=== PATIENT | male | born 1950 | race Caucasian/White ===

== ENCOUNTER → 2021-06-12 13:16 | Outpatient (BNVA) | payer BC, SELFPAY | PROVIDERS: PCP Hospitalist; Referring Provider Hospitalist; Visit Provider Internal Medicine Cardiovascular Disease | DX: I25.10 Atherosclerotic heart disease of native coronary artery without angina pectoris (principal); I10 Essential (primary) hypertension; Z79.82 Long term (current) use of aspirin | CPT/HCPCS: 93005 ==

== ENCOUNTER 2021-07-27 07:19 | Outpatient (REF) | payer BC, SELFPAY ==
[2021-07-27 12:07] LABS: PSA,Total (Free>4and<10) 0.13 ng/mL (0.00-4.00)
== END 2021-07-27 07:20 | disposition home or self-care (01) ==
LOC: HO.HMGCLDS 07:19
PROVIDERS: PCP Hospitalist; Visit Provider Urology
DX: Z12.5 Encounter for screening for malignant neoplasm of prostate (principal); N40.1 Benign prostatic hyperplasia with lower urinary tract symptoms
CPT/HCPCS: 36415; 84153

== ENCOUNTER → 2021-08-02 08:44 | Outpatient (BNVA) | payer BC, SELFPAY | PROVIDERS: PCP Hospitalist; Visit Provider Urology | DX: N40.0 Benign prostatic hyperplasia without lower urinary tract symptoms (principal); C67.9 Malignant neoplasm of bladder, unspecified | CPT/HCPCS: 52000 ==

== ENCOUNTER 2022-01-24 07:35 | Outpatient (REF) | payer MEDICARE, SELFPAY ==
[2022-01-24 11:33] LABS: Appearance Urine CLEAR; Color Urine YELLOW; Glucose Urine UA NEG (NEG); Leukocyte Esterase Urine NEG (NEG); Nitrite Urine NEG (NEG); Specific Gravity - Urine 1.025 (1.005-1.025); Urine Blood NEG (NEG); Urine Ketones NEG (NEG); Urine Protein NEG (NEG-TRACE)
[2022-01-24 11:59] LABS: RBC Urine 0-2 /HPF (0); WBC Urine 0-2 /HPF (0-4)
[2022-01-24 12:00] LABS: Mucus Urine TRACE /LPF; Squamous Epithelial Cell Urine TRACE /LPF
== END 2022-01-24 07:36 | disposition home or self-care (01) ==
LOC: HO.HMGCLNP 07:35
PROVIDERS: PCP Urology; Visit Provider Urology
DX: N40.1 Benign prostatic hyperplasia with lower urinary tract symptoms (principal)
CPT/HCPCS: 81001; 87086

== ENCOUNTER → 2022-05-30 09:18 | Outpatient (REF) | payer MEDICARE, SELFPAY ==
--- NOTE | 2022-05-30 09:21 | CA_ITS ---
Transthoracic Echocardiogram Patient (Last, First, Middle): Phill Mccallum B Gender: Male Date of : 1950 Age: 72 Procedure Date: 05/30/2022 Procedure Type: Transthoracic Echocardiogram Location: OP Height: 177.8 cm Weight: 151.05 kg BSA: 2.59 m2 Heart Rate: 67 bpm BP: 134 / 72 mmHg Drill Runner Helper: SB Referring MD: Allen Avalos MD Symptoms: I25.10 - Atherosclerotic heart disease of [place] coronary... Study Quality: Technically Difficult/BSA/Contrast ECG Rhythm: Sinus Conclusions: - The left ventricular systolic function is normal. The visually estimated ejection fraction is between 60-65%. - There is moderate calcification of the aortic valve. There is mild aortic valve stenosis. - There is mild dilatation of the ascending aorta measuring 4.10 cm. Findings Procedure Information Contrast agent, definity, is being given per protocol without apparent complications. Left Ventricle Normal left ventricular cavity size. There is mildly increased left ventricular wall thickness. The left ventricular systolic function is normal. The visually estimated ejection fraction is between 60-65%. There is no evidence of regional wall motion abnormalities. E/E prime ratio is between 8 and 15 consistent with indeterminate filling pressures. Evidence suggests grade I (mild) diastolic dysfunction. Right Ventricle Mildly increased right ventricular cavity size. There is normal right ventricular systolic function. Atria Both atria are normal in size. Aortic Valve There is moderate calcification of the aortic valve. There is mild aortic valve stenosis. There is no aortic valve regurgitation. Mitral Valve The mitral valve appears normal. There is mild mitral annular calcification. There is no mitral valve regurgitation. There is no mitral valve stenosis. Pulmonic Valve The pulmonic valve is likely normal. Tricuspid Valve There is trace tricuspid valve regurgitation. Tricuspid regurgitation envelope is inadequate for calculation of right ventricular systolic pressure. Great Vessels There is mild dilatation of the ascending aorta measuring 4.10 cm. Venous The inferior vena cava is normal in size and collapses greater than 50% with inspiration. Pericardium/Pleural There is no evidence of pericardial effusion. Prior Study Comparison No significant change compared to prior study dated: 05/23/2020. Measurements 2D Linear Measurements IVSd: 0.62 0.6-0.9/0.6-1.0 cm LVIDd: 5.49 3.9-5.3/4.2-5.9 cm LVIDd Index: 2.12 2.4-3.2/2.2-3.1 cm/m2 LVIDs: 3.83 2.0-3.6 cm LVPWd: 0.77 0.7-1.1 cm LA Diam: 4.60 2.7-3.8/3.0-4.0 cm LAIDs Index: 1.78 1.5-2.3 cm/m2 LV Mass: 167.19 67-162/88-224 g LV Mass Index: 64.55 43-95/49-115 g/m2 LVOT Diam: 2.70 3.0+(-)1.3 cm 2D Systolic Function EF 4C: 69.80 >55% EF 2C: 64.50 >55% EF BiP: 67.20 >55% Mitral Valve MV Pk E: 1.04 MV PK A: 0.94 MV Decel Time: 234.00 E/A: 1.10 E'Lateral: 6.96 E'Medial: 6.74 E/E' Med: 15.40 E/E' Lat: 14.90 PHT: 69.00 MVA PHT: 3.19 Decel [place]: 4.44 Aortic Valve AoV Pk Heber: 2.18 AoV Mn Heber: 1.67 AoV VTI: 0.50 AoV Pk Grad: 19.00 Aov Mn Grad: 12.00 NOEMY Cont.VTI: 3.11 LVOT LVOT Pk Heber: 1.18 LVOT Mn Heber: 0.82 LVOT VTI: 0.27 LVOT Pk Grad: 6.00 LVOT Mn Grad: 3.00 LVOT Diam: 2.70 LVOT Area: 5.73 Diastolic Function MV Pk E: 1.04 MV Pk A: 0.94 E/A: 1.10 E'Medial: 6.74 E/E' Med: 15.40 E' Laterial: 6.96 E/E' Lat: 14.90 Right Ventricle TAPSE (mm): 21.40 TVS' Heber: 9.00 Tricuspid Valve RA Press: 3.00 Great Vessels Aorta Sinus of Valsalva: 3.50 2.0-3.5 cm Ao Asc: 4.10 2.1-3.4 cm Pulmonary Valve PV Pk Heber: 0.89 Peak PV Grad: 3.00 Updated in Other Vendor System with Status of Final Roberth May MD electronically signed on 06/01/2022 11:59:59 AM with status of Final
== END ==
LOC: HO.CARD 09:18
PROVIDERS: PCP Internal Medicine; Visit Provider Internal Medicine Cardiovascular Disease
DX: I25.10 Atherosclerotic heart disease of native coronary artery without angina pectoris (principal)
CPT/HCPCS: 93306; Q9957

== ENCOUNTER → 2022-06-03 09:32 | Outpatient (BNVA) | payer MEDICARE, SELFPAY | PROVIDERS: PCP Internal Medicine; Visit Provider Internal Medicine Cardiovascular Disease | DX: I25.10 Atherosclerotic heart disease of native coronary artery without angina pectoris (principal); I35.0 Nonrheumatic aortic (valve) stenosis; Z79.899 Other long term (current) drug therapy | CPT/HCPCS: 93005; 99212 ==

== ENCOUNTER 2022-06-07 08:08 | Outpatient (REF) | payer MEDICARE, SELFPAY ==
[2022-06-07 11:45] LABS: Cholesterol 125 mg/dL; HDL Cholesterol 34 mg/dL; LDL Cholesterol Calculated 65 mg/dl; Triglycerides 132 mg/dL
== END 2022-06-07 08:09 | disposition home or self-care (01) ==
LOC: HO.HMGCLDS 08:08
PROVIDERS: Visit Provider Internal Medicine Cardiovascular Disease
DX: I25.10 Atherosclerotic heart disease of native coronary artery without angina pectoris (principal)
CPT/HCPCS: 36415; 80061

== ENCOUNTER 2022-12-25 07:22 | Day surgery (SDC) | payer MEDICARE, SELFPAY ==
--- NOTE | 2022-12-24 11:31 | HO.ANESPROP2 ---
HPI - Anesthesia Eval Consult details Narrative: 72yo M for Upper Endoscopy and Colonoscopy Stable at yearly cardiac office visit 05/2022 [facility] Active Problems Active Problems: All Active Problems (Updated 12/24/22 @ 08:39 by Luana Lipscomb RN) Bladder cancer (Acute) Aortic stenosis (Acute) Enlarged prostate with lower urinary tract symptoms (LUTS) (Acute) HTN (hypertension) (Acute) CAD (coronary artery disease) (Acute) Past Medical History Medical History (Updated 12/24/22 @ 08:39 by Luana Lipscomb RN) Achalasia CAD (coronary artery disease) CVA (cerebral vascular accident) Enlarged prostate with lower urinary tract symptoms (LUTS) HTN (hypertension) Hyperlipidemia Sleep apnea Family History Family History Father Cancer Mother Cancer Surgical History Surgical History (Updated 12/24/22 @ 08:38 by Luana Lipscomb RN) History of bladder surgery History of left-sided carotid endarterectomy History of prostate surgery Hx of cardiac catheterization Social History Social History Patient Tobacco Use Status: Never used Tobacco Use of substances other than those prescribed or required for medical reasons: No Are you DNR?: No Advance Directives: No Advance Directives Information Provided: Yes Meds Allergies Allergy/AdvReac Type Severity Reaction Status Date / Time Penicillins [PENICILLINS] Allergy Intermediate HIVES Verified 08/02/21 08:57 penicillin V Allergy Unknown hives Verified 08/02/21 08:57 Home Medications Medication Instructions Recorded Confirmed Last Taken Type aspirin 81 mg tablet,delayed 81 mg PO DAILY 06/12/21 12/25/22 Unknown History release (Adult Aspirin Regimen) atenolol 100 mg tablet 100 mg PO DAILY 06/12/21 12/25/22 12/25/22 History hydrochlorothiazide 25 mg tablet 25 mg PO DAILY 06/12/21 12/25/22 Unknown History omeprazole 20 mg capsule,delayed 20 mg PO DAILY 06/12/21 12/25/22 Unknown History release lisinopril 5 mg tablet 5 mg PO DAILY 08/02/21 12/25/22 Unknown History Exam Exam Date and Time: December 24, 2022 1131 Narrative Narrative: EKG 05/2022 normal sinus rhythm with minimal voltage criteria for LVH otherwise normal EKG at 65 beats per min ECHO 05/2022 Conclusions: - The left ventricular systolic function is normal.? The visually estimated ejection fraction is between 60-65%. ? - There is moderate calcification of the aortic valve.? There is mild aortic valve stenosis.? - There is mild dilatation of the ascending aorta measuring 4.10 cm.? ?? Assessment and Plan Assessment Anesthesia Assessment: Chart Reviewed
[2022-12-25 07:36] VITALS: BMI 46.0
[2022-12-25 07:44] VITALS: BMI 46.0
[2022-12-25 07:52] VITALS: BP 186/74; PULSE 79; RESP 18; TEMP 36.2; O2SAT 96
[2022-12-25] MEDS: Lactated Ringers 1,000 ML 50 ML IVCONT (08:12)
--- NOTE | 2022-12-25 09:31 | P.CONAN_ITS ---
HPI - Anesthesia Eval Consult details Narrative: gabriel ayala ho polyp screening [facility] Active Problems Active Problems: All Active Problems (Updated 12/24/22 @ 08:39 by Luana Lipscomb RN) Bladder cancer (Acute) Aortic stenosis (Acute) Enlarged prostate with lower urinary tract symptoms (LUTS) (Acute) HTN (hypertension) (Acute) CAD (coronary artery disease) (Acute) Past Medical History Medical History (Updated 12/24/22 @ 08:39 by Launa Lipscomb RN) Achalasia CAD (coronary artery disease) CVA (cerebral vascular accident) Enlarged prostate with lower urinary tract symptoms (LUTS) HTN (hypertension) Hyperlipidemia Sleep apnea Family History Family History Father Cancer Mother Cancer Family history of problems with anesthesia: No Surgical History Surgical History (Updated 12/24/22 @ 08:38 by Luana Lipscomb RN) History of bladder surgery History of left-sided carotid endarterectomy History of prostate surgery Hx of cardiac catheterization History of Problems with Anesthesia: Yes (Woke up during colooscop) Social History Social History Patient Tobacco Use Status: Never used Tobacco Use of substances other than those prescribed or required for medical reasons: No Are you DNR?: No Advance Directives: No Advance Directives Information Provided: Yes Meds Allergies Allergy/AdvReac Type Severity Reaction Status Date / Time Penicillins [PENICILLINS] Allergy Intermediate HIVES Verified 08/02/21 08:57 penicillin V Allergy Unknown hives Verified 08/02/21 08:57 Active Medications: Current Medications Lactated Ringer's (Lr) 1,000 mls @ 50 mls/hr IVCONT .Q20H WILBERTO Last Admin: 12/25/22 08:12 Dose: 50 mls/hr Lactated Ringer's (Lr) 1,000 mls @ 50 mls/hr IVCONT .Q20H [facility] Sodium Biphosphate/Sodium Phosphate (Sodium Phosphate,Gregg-Dibasic 133 Ml Enema) 133 ml MD ONCE PRN PRN Reason: Poor Colonoscopy Prep Results Home Medications Medication Instructions Recorded Confirmed Last Taken Type aspirin 81 mg tablet,delayed 81 mg PO DAILY 06/12/21 12/25/22 Unknown History release (Adult Aspirin Regimen) atenolol 100 mg tablet 100 mg PO DAILY 06/12/21 12/25/22 12/25/22 History hydrochlorothiazide 25 mg tablet 25 mg PO DAILY 06/12/21 12/25/22 Unknown History omeprazole 20 mg capsule,delayed 20 mg PO DAILY 06/12/21 12/25/22 Unknown History release lisinopril 5 mg tablet 5 mg PO DAILY 08/02/21 12/25/22 Unknown History Exam Exam Date and Time: December 25, 2022930 Height,Weight and Vital Signs: Height 5 ft 11 in Weight 149.685 kg Last Vital Signs Temp 97.1 F 12/25/22 07:52 Pulse 79 12/25/22 07:52 Resp 18 12/25/22 07:52 BP 186/74 H 12/25/22 07:52 Pulse Ox 96 12/25/22 07:52 O2 Del Method 12/25/22 07:52 Airway Mallampati Class: III TM Dist: >3cm Neck ROM: Full (Large width) Loose/Missing/Broken Teeth: Yes (Missig front rand l) Heart: rr Lungs: cta Assessment and Plan Assessment Anesthesia Assessment: Anesthesia Plan Discussed and Chart Reviewed Final Anesthetic Review Family History of Problems with Anesthesia: No History of Problems with Anesthesia: Yes (Woke up during colooscop) NPO: Yes ASA Class: III Final Preanesthetic Review: No Changes in Pt Med Stat, Meds/Allgs Chart Reviewed, Consent Obtained/Reviewed and Anes Risks/Benef Reviewed Anesthetic Plan Anesthetic Plan: MAC: Disposition: Standard PACU
[2022-12-25 09:51] VITALS: BP 104/44; PULSE 70; RESP 22; TEMP 36.1; O2SAT 92
--- NOTE | 2022-12-25 09:51 | P.BOP_ITS ---
Brief Operative Note Date of Service: 12/25/22 Pre-op diagnosis: Jameson's, Screening Post-op diagnosis: other (Same, Gastric polyps, Diverticulosis) Procedure: EGD with biospies, Colonoscopy to the cecum and TI Surgeon: Brenden Diana Anesthesia: MAC Was an Fruit Buying Grader used for this Procedure?: No Estimated blood loss (mL): 2.0 Pathology: other (A. Esophagus 38-40cm B. Gastric polyp at 50cm C. Gastric polyps) Condition: stable Disposition: PACU
[2022-12-25 10:06] VITALS: BP 129/64; PULSE 73; RESP 20; TEMP 36.2; O2SAT 95
[2022-12-25 10:21] VITALS: BP 130/60; PULSE 65; RESP 20; TEMP 36.2; O2SAT 96
--- NOTE | 2022-12-25 11:45 | OP_ITS ---
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 Full consent has been obtained from him for this, including risks of bleeding and perforation. PREOPERATIVE DIAGNOSIS: POSTOPERATIVE DIAGNOSIS: PROCEDURE PERFORMED: Esophagogastroduodenoscopy with biopsies, and colonoscopy to the cecum and terminal ileum. ESTIMATED BLOOD LOSS: COMPLICATIONS: ANESTHESIA: Monitored anesthesia care. ASSISTANTS: SPECIMENS: PREOPERATIVE DIAGNOSES: Jameson's esophagus and colorectal cancer screening. POSTOPERATIVE DIAGNOSES: Jameson's esophagus and colorectal cancer screening, hiatal hernia, gastric polyps, diverticulosis, and internal hemorrhoids. DESCRIPTION OF PROCEDURE: The patient was placed in the left lateral decubitus position. The Olympus video gastroscope was passed into the posterior oropharynx and upper esophagus under direct vision. The scope was passed slowly to the distal esophagus. The gastroesophageal junction appeared at 40 cm. Extending from this, 38 cm were non-circumferential areas of Jameson appearing mucosa. There was no evidence of any ulceration, nor any lesions. The esophagus itself appeared to be somewhat dilated with diminished peristalsis, consistent with his known achalasia. The scope easily entered the stomach. There was a small hiatal hernia. The scope was advanced to the pylorus, and the duodenum was cannulated to the descending portion. The duodenum including the bulb appeared normal without mass or ulceration. The scope was withdrawn back in the stomach. The gastric antrum appeared normal with good peristalsis. Both in the forward viewing and retroflexed positions, I was able to visualize multiple gastric polyps, some of which appeared hyperplastic and some of which appeared to be inflammatory. There was one particularly large inflammatory polyp at 50 cm. There was no sign of any mass nor ulceration. The scope was withdrawn. The scope was withdrawn back in the esophagus. Multiple biopsies were obtained between 38 and 40 cm areas of Jameson appearing mucosa. The scope was readvanced back into the stomach, and biopsies were obtained from large inflammatory gastric polyp at 50 cm. I also obtained biopsies from some of the hyperplastic appearing gastric polyps as well. The scope was withdrawn back in the esophagus. Proximal to the 38 cm, the esophageal mucosa appeared normal. The scope was withdrawn from the patient. He was turned around for the colonoscopy. The digital rectal exam revealed no abnormalities. The Olympus video pediatric colonoscope was entered into the rectum and advanced to the cecum with assistance of abdominal wall pressure. Once in the cecum, I did identify normal-appearing cecal pouch with appendiceal orifice and normal-appearing ileocecal valve. The terminal ileum was cannulated and appeared normal. The scope was withdrawn back in the colon. The entire cecum and ileocecal valve appeared normal. The scope was slowly withdrawn assessing all mucosal surfaces carefully. Preparation was excellent. I did not visualize any sign of polyps, colitis nor angiodysplasia. There was a mild amount of sigmoid and descending colon diverticulosis. In the rectum, the scope was retroflexed, visualizing internal hemorrhoids, but no other pathology. The rectal mucosa appeared normal. The scope was straightened and withdrawn from the patient. He tolerated both procedures well and was returned to the recovery area in stable condition. IMPRESSION: 1. History of Jameson's esophagus. 2. Gastric polyps. 3. Hiatal hernia. 4. Diverticulosis. 5. Internal hemorrhoids. PLAN: The results of the biopsies will be checked. Given today's negative colonoscopy and a negative colonoscopy in 2016, I do not think he will need any further colonoscopies for screening purposes given his age 72. I would recommend repeat a upper endoscopy in three years for surveillance of the Jameson's esophagus assuming today's biopsies do not show dysplasia. He will continue his daily omeprazole. He was advised to resume his aspirin in 72 hours. He will otherwise see me on a p.r.n. basis. This has been discussed with his . MD DANIEL Kidd/CINDY / [id number]
== END 2022-12-25 11:02 | disposition home or self-care (01) ==
PROVIDERS: PCP Internal Medicine; Visit Provider Internal Medicine
PROC: (CPT 43239; principal; 2022-12-25 08:30)
DX: Z12.11 Encounter for screening for malignant neoplasm of colon (principal); Z86.010 Personal history of colon polyps; K57.30 Diverticulosis of large intestine without perforation or abscess without bleeding; K64.8 Other hemorrhoids; K22.70 Barrett's esophagus without dysplasia; K21.9 Gastro-esophageal reflux disease without esophagitis; K22.0 Achalasia of cardia; K31.7 Polyp of stomach and duodenum; K44.9 Diaphragmatic hernia without obstruction or gangrene; I10 Essential (primary) hypertension; E78.5 Hyperlipidemia, unspecified; G47.33 Obstructive sleep apnea (adult) (pediatric); N40.1 Benign prostatic hyperplasia with lower urinary tract symptoms; R35.0 Frequency of micturition; Z79.82 Long term (current) use of aspirin; Z79.899 Other long term (current) drug therapy; Z99.89 Dependence on other enabling machines and devices; Z85.51 Personal history of malignant neoplasm of bladder; Z86.73 Personal history of transient ischemic attack (TIA), and cerebral infarction without residual deficits
CPT/HCPCS: 43239; G0105; 88305; 88342; J2250

== ENCOUNTER → 2023-05-29 09:33 | Outpatient (REF) | payer MEDICARE, SELFPAY ==
--- NOTE | 2023-05-29 09:36 | CA_ITS ---
Transthoracic Echocardiogram Patient (Last, First, Middle): Phill Mccallum B Gender: Male Date of : 1950 Age: 73 Procedure Date: 05/29/2023 Procedure Type: Transthoracic Echocardiogram Location: OP Height: 180.34 cm Weight: 149.69 kg BSA: 2.61 m2 Heart Rate: 63 bpm BP: 110 / 60 mmHg Control Clerk Repairs: BRIJESH Referring MD: Allen Avalos MD Symptoms: I35.0 - Nonrheumatic aortic (valve) stenosis Study Quality: Fair/Contrast ECG Rhythm: Sinus Conclusions: - Normal left ventricular size and systolic function. There is mildly increased left ventricular wall thickness. The visually estimated ejection fraction is between 55-60%. - E/E prime ratio is >15, consistent with elevated filling pressures. - Mildly increased right ventricular cavity size. There is borderline right ventricular systolic function. - There is moderate calcification of the aortic valve. There is mild aortic valve stenosis. - There is moderate dilatation of the sinuses of Valsalva measuring 4.60 cm and mild dilatation of the ascending aorta measuring 4.10 cm. Findings Procedure Information Contrast agent, definity, is being given per protocol without apparent complications. Left Ventricle Normal left ventricular size and systolic function. There is mildly increased left ventricular wall thickness. The visually estimated ejection fraction is between 55-60%. There is no evidence of regional wall motion abnormalities. Abnormal diastolic function is noted. Spectral Doppler is indicative of an impaired relaxation filling pattern. E/E prime ratio is >15, consistent with elevated filling pressures. Right Ventricle Mildly increased right ventricular cavity size. There is borderline right ventricular systolic function. Atria The left atrium is normal in size. The right atrium is normal in size. Aortic Valve There is moderate calcification of the aortic valve. There is mild aortic valve stenosis. The peak aortic velocity is 2.41 m/s. The mean gradient is 14 mmHg. The aortic valve area is 2.30 cm2. There is no aortic valve regurgitation. Mitral Valve Normal mitral valve structure and function. There is no mitral valve regurgitation. There is no mitral valve stenosis. Pulmonic Valve Normal pulmonic valve structure and function. There is no pulmonic valve regurgitation. Tricuspid Valve Normal tricuspid valve structure and function. There is no tricuspid valve regurgitation. Tricuspid regurgitation envelope is inadequate for calculation of right ventricular systolic pressure. Indeterminate right atrial pressure. Great Vessels The pulmonary artery was not well visualized. There is moderate dilatation of the sinuses of Valsalva measuring 4.60 cm and mild dilatation of the ascending aorta measuring 4.10 cm. Venous The inferior vena cava was not well visualized. Pericardium/Pleural There is no evidence of pericardial effusion. Prior Study Comparison Changes noted compared to prior study dated: 05/30/2022. Elevated filling pressures. Mild dilation ascending and moderate root dilation. Mild . Measurements 2D Linear Measurements IVSd: 1.06 0.6-0.9/0.6-1.0 cm LVIDd: 4.93 3.9-5.3/4.2-5.9 cm LVIDd Index: 1.89 2.4-3.2/2.2-3.1 cm/m2 LVIDs: 3.20 2.0-3.6 cm LVPWd: 1.18 0.7-1.1 cm LA Diam: 3.60 2.7-3.8/3.0-4.0 cm LAIDs Index: 1.38 1.5-2.3 cm/m2 LV Mass: 258.73 67-162/88-224 g LV Mass Index: 99.13 43-95/49-115 g/m2 LVOT Diam: 2.50 3.0+(-)1.3 cm 2D Systolic Function EF 4C: 56.40 >55% EF 2C: 71.30 >55% EF BiP: 65.50 >55% Mitral Valve MV Pk E: 0.96 MV PK A: 1.05 MV Decel Time: 183.00 E/A: 0.90 E'Lateral: 6.57 E'Medial: 5.27 E/E' Med: 18.20 E/E' Lat: 14.60 PHT: 54.00 MVA PHT: 4.07 Decel [place]: 5.24 Aortic Valve AoV Pk Heber: 2.41 AoV Mn Heber: 1.78 AoV VTI: 0.59 AoV Pk Grad: 23.00 Aov Mn Grad: 14.00 NOEMY Cont.VTI: 2.30 LVOT LVOT Pk Heber: 1.11 LVOT Mn Heber: 0.86 LVOT VTI: 0.28 LVOT Pk Grad: 5.00 LVOT Mn Grad: 3.00 LVOT Diam: 2.50 LVOT Area: 4.91 Diastolic Function MV Pk E: 0.96 MV Pk A: 1.05 E/A: 0.90 E'Medial: 5.27 E/E' Med: 18.20 E' Laterial: 6.57 E/E' Lat: 14.60 Right Ventricle TAPSE (mm): 19.80 TVS' [place]: 8.92 Tricuspid Valve RA Press: 8.00 Great Vessels Aorta Sinus of Valsalva: 4.60 2.0-3.5 cm Ao Asc: 4.10 2.1-3.4 cm Pulmonary Valve PV Pk Heber: 0.97 Peak PV Grad: 4.00 Updated in Other Vendor System with Status of Final Jon Crockett MD electronically signed on 05/30/2023 11:53:11 AM with status of Final
== END ==
LOC: HO.CARD 09:33
PROVIDERS: PCP Internal Medicine; Visit Provider Internal Medicine Cardiovascular Disease
DX: I35.0 Nonrheumatic aortic (valve) stenosis (principal)
CPT/HCPCS: 93306; Q9957

== ENCOUNTER → 2023-05-29 09:36 | Outpatient (BNV) | payer MEDICARE, SELFPAY | PROVIDERS: PCP Internal Medicine; Visit Provider Internal Medicine Cardiovascular Disease | DX: I35.0 Nonrheumatic aortic (valve) stenosis (principal) | CPT/HCPCS: 93306 ==

== ENCOUNTER 2023-06-09 10:07 | Outpatient (AMB) | payer MEDICARE, SELFPAY ==
--- NOTE | 2023-06-09 10:10 | A.OFFVIS_ITS ---
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 He denies any new cardiac symptoms. Unfortunately has not been exercising regularly as per the who accompanies him. He denies any worsening symptoms of angina. His main complaint currently frequent urination thinks this is related to his hydrochlorothiazide use. Blood pressure measured in the morning as been in normal range. Denies any lightheadedness, syncope. Denies any orthopnea, PND, leg edema. Denies any prolonged palpitation irregular heartbeat. Takes all his medications. Recent echocardiogram shows mild aortic stenosis with preserved LV systolic function. [facility] Medical History Achalasia CAD (coronary artery disease) CVA (cerebral vascular accident) Enlarged prostate with lower urinary tract symptoms (LUTS) HTN (hypertension) Hyperlipidemia Sleep apnea Surgical History History of bladder surgery History of left-sided carotid endarterectomy History of prostate surgery Hx of cardiac catheterization Family History Father Cancer Mother Cancer Social History Patient Tobacco Use Status: Never used Tobacco Review of Systems Const Denies weakness ENT Denies dizziness Card Denies chest pain, Denies chest pain with activity, Denies syncope, Denies rapid heart rate, Denies pedal edema, Denies edema, Denies leg edema, Denies lightheadedness, Denies palpitations, Denies dyspnea, Denies dyspnea on exertion and Denies orthopnea Resp Denies cough, Denies dyspnea and Denies dyspnea on exertion GI Denies hematochezia and Denies change in stool character Musc Denies abnormal gait, Denies muscle cramps, Denies muscle weakness, Denies numbness, Denies radiating pain into limb and Denies tingling Neuro Denies abnormal gait, Denies dizziness, Denies syncope, Denies numbness, Denies tingling and Denies weakness Endo Denies palpitations Physical Exam Vital Signs: Last Vital Signs Pulse 65 06/09/23 10:11 BP 130/60 06/09/23 10:11 BMI result Body Mass Index 46.7 Const General: cooperative, comfortable, no acute distress, alert and awake Nutritional Appearance: obese morbidly obese Orientation/consciousness: patient oriented x3 Limitations: no limitations Neck Neck: Yes trachea midline, Yes supple and Yes no JVD Carotids: bruit bilateral Resp Effort & Inspection: normal respiratory effort Auscultation: clear to auscultation bilaterally Cardio Jugular venous distension: no JVD Rate: regular rate Rhythm: regular rhythm Heart sounds: S1 normal heart sound present, S2 normal heart sound present, no click, no gallops, Murmur heart sound present systolic early, decrescendo and crescendo and no rubs Peripheral pulses: Peripheral pulses 2+ throughout GI Inspection: Yes Abdominal panniculus present and Yes obesity Auscultation: normal bowel sounds Skin General skin exam: no rashes or lesions noted Neuro General: patient oriented x3 and no focal motor deficits Extrem General: Yes no clubbing, cyanosis or edema Assessment & Plan Assessment & Plan (1) CAD (coronary artery disease): Code(s): I25.10 - Atherosclerotic heart disease of [place] coronary artery without angina pectoris Plan: CAD with severe branch vessel disease no symptoms of angina on current medical therapy with atenolol and isosorbide. However he does not exercise much. Discussed with the move importance of exercise to improve cardiovascular outcome as well as other outcomes. Advised lipid panel near future. Continue high- intensity statin therapy and low-dose aspirin therapy. To participate in aggressive weight loss program. Continue aggressive blood pressure control. He is currently having side effects to hydrochlorothiazide therapy and agree with discontinuing it to improve his quality of life and switch to increase lisinopril does at 10 mg. (2) Aortic stenosis: Code(s): I35.0 - Nonrheumatic aortic (valve) stenosis Plan: Aortic stenosis which remains mild. No interventions required. Cardinal symptoms associated with severe aortic stenosis were discussed. Continue aggressive vascular risk factor modification. Follow-up echocardiogram next year. Will follow up in the clinic in 1 year's time, sooner p.r.n.. Thank you for allowing me to partake in his care Orders: Orders Lipid Panel Today I25.10 - Atherosclerotic heart disease of [place] coronary art tracy without angina pectoris CA echo transthoracic complete 50 Weeks I35.0 - Nonrheumatic aortic (valve) stenosis Medications: New lisinopril 10 mg PO DAILY 90 tabs 3RF I35.0 - Nonrheumatic aortic (valve) stenosis Coding Level of Care Code Est Pt Level 4 (68691) Diagnoses CAD (coronary artery disease) I25.10 Aortic stenosis I35.0
[2023-06-09 10:11] VITALS: BP 130/60; PULSE 65; BMI 46.7
== END 2023-06-09 10:50 | disposition home or self-care (01) ==
PROVIDERS: PCP Internal Medicine; Referring Provider Internal Medicine; Visit Provider Internal Medicine Cardiovascular Disease
DX: I25.10 Atherosclerotic heart disease of native coronary artery without angina pectoris (principal); I35.0 Nonrheumatic aortic (valve) stenosis
CPT/HCPCS: 99214

== ENCOUNTER → 2023-06-09 10:07 | Outpatient (BNVA) | payer MEDICARE, SELFPAY | PROVIDERS: PCP Internal Medicine; Referring Provider Internal Medicine; Visit Provider Internal Medicine Cardiovascular Disease | DX: I35.0 Nonrheumatic aortic (valve) stenosis (principal); I25.10 Atherosclerotic heart disease of native coronary artery without angina pectoris; I10 Essential (primary) hypertension | CPT/HCPCS: 99212 ==

== ENCOUNTER 2023-06-10 08:35 | Outpatient (REF) | payer MEDICARE, SELFPAY ==
[2023-06-10 12:04] LABS: Cholesterol 115 mg/dL (<200); HDL Cholesterol 33 mg/dL (>40); LDL Cholesterol Calculated 59 mg/dL (<100); Triglycerides 116 mg/dL (<150)
== END 2023-06-10 08:36 | disposition home or self-care (01) ==
LOC: HO.HMGCLDS 08:35
PROVIDERS: PCP Internal Medicine; Visit Provider Internal Medicine Cardiovascular Disease
DX: I25.10 Atherosclerotic heart disease of native coronary artery without angina pectoris (principal)
CPT/HCPCS: 36415; 80061

== ENCOUNTER 2023-09-23 10:51 | Outpatient (AMB) | payer MEDICARE, SELFPAY ==
[2023-09-23 11:12] VITALS: BP 120/68; PULSE 62; BMI 48.0
--- NOTE | 2023-09-23 11:12 | A.OFFVIS_ITS ---
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 Allergies Penicillins [PENICILLINS] Allergy (Intermediate, Verified 06/09/23 10:11) HIVES penicillin V Allergy (Unknown, Verified 06/09/23 10:11) hives Medication List - Last Reconciled 09/23/23 by Allen Avalos MD aspirin (Adult Aspirin Regimen) 162 mg PO DAILY atenolol 100 mg PO DAILY atorvastatin 80 mg PO DAILY isosorbide mononitrate ER 60 mg PO DAILY lisinopril 10 mg PO DAILY omeprazole 20 mg PO DAILY HPI HPI Comments History of Present Illness Details Tiburcio comes for follow-up visit after a visit with flight operations manager due to recurrent transient visual disturbances which dating might be related to amauosis Fugax, although no clear the time retinal abnormality was noted. Patient subsequently had echocardiogram which showed mild aortic stenosis normal LV systolic function moderate left atrial enlargement. He denies any symptoms of palpitations. Denies any other neurologic symptoms. Denies any exertional chest pain or shortness of breath. No change in his therapy. His LDL cholesterol is well optimized at 56 PFSH Medical History Achalasia Sleep apnea Hyperlipidemia CVA (cerebral vascular accident) Enlarged prostate with lower urinary tract symptoms (LUTS) HTN (hypertension) CAD (coronary artery disease) Surgical History History of prostate surgery History of left-sided carotid endarterectomy Hx of cardiac catheterization History of bladder surgery Family History Father Cancer Mother Cancer Social History Patient Tobacco Use Status: Never used Tobacco Review of Systems Const Denies chills, Denies fatigue, Denies fever(s), Denies frequent falls, Denies weakness, Denies weight gain and Denies weight loss ENT Denies dizziness Card Denies chest pain, Denies leg edema, Denies lightheadedness, Denies palpitations, Denies dyspnea, Denies dyspnea on exertion, Denies orthopnea and Denies other (loss of consciousness) Resp Denies cough, Denies dyspnea and Denies dyspnea on exertion GI Denies hematochezia and Denies change in stool character Musc Denies abnormal gait, Denies muscle weakness, Denies numbness, Denies radiating pain into limb and Denies tingling Neuro Denies abnormal gait, Denies dizziness, Denies frequent falls, Denies numbness, Denies tingling and Denies weakness Endo Denies fatigue and Denies palpitations Physical Exam Vital Signs: Last Vital Signs Pulse 62 09/23/23 11:12 BP 120/68 09/23/23 11:12 BMI result Body Mass Index 48.0 Const General: cooperative, comfortable, no acute distress, alert and awake Nutritional Appearance: obese morbidly obese Orientation/consciousness: patient oriented x3 Limitations: no limitations Neck Neck: Yes trachea midline, Yes supple and Yes no JVD Carotids: bruit bilateral Resp Effort & Inspection: normal respiratory effort Auscultation: clear to auscultation bilaterally Cardio Jugular venous distension: no JVD Rate: regular rate Rhythm: regular rhythm Heart sounds: S1 normal heart sound present, S2 normal heart sound present, no click, no gallops, Murmur heart sound present systolic early, decrescendo and crescendo and no rubs Peripheral pulses: Peripheral pulses 2+ throughout GI Inspection: Yes Abdominal panniculus present and Yes obesity Auscultation: normal bowel sounds Skin General skin exam: no rashes or lesions noted Neuro General: patient oriented x3 and no focal motor deficits Extrem General: Yes no clubbing, cyanosis or edema Assessment & Plan Assessment & Plan (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 Patient is at risk for atrial fibrillation given his left atrial enlargement multiple risk factors as well as vascular disease. Will obtain a cardiac event monitor to further assess for the same. If is no evidence of atrial fibrillation I would recommend also for him to undergo carotid duplex [facility]. Will reach out to vascular surgery. If he does have significant plaquing, may benefit from dual antiplatelet therapy. If he has atrial fibrillation would benefit from oral anticoagulation therapy. If no obvious carotid disease and/or atrial fibrillation found can consider LESLI. (2) CAD (coronary artery disease): Code(s): I25.10 - Atherosclerotic heart disease of [place] coronary artery without angina pectoris Plan: CAD with branch vessel disease. No current symptoms of angina on dual antianginal therapy continue same. Currently LDL is well optimized. Advised to continue high-intensity statin therapy. Blood pressure is currently well optimized. Currently on aspirin therapy for vascular protection continue the same. May need to add 2nd antiplatelet agent if she he has any significant plaquing in carotid disease. (3) Aortic stenosis: Code(s): I35.0 - Nonrheumatic aortic (valve) stenosis Plan: Aortic stenosis which appears to be mild and stable. Continue aggressive vascular risk factor modifications above. Follow up in the clinic in 6 months time, sooner p.r.n.. Thank you for allowing me to partake in his care Coding Level of Care Code Est Pt Level 4 (66098) Diagnoses Amaurosis fugax G45.3 CAD (coronary artery disease) I25.10 Aortic stenosis I35.0
== END 2023-09-23 11:42 | disposition home or self-care (01) ==
PROVIDERS: PCP Internal Medicine; Visit Provider Internal Medicine Cardiovascular Disease
DX: G45.3 Amaurosis fugax (principal); I25.10 Atherosclerotic heart disease of native coronary artery without angina pectoris; I35.0 Nonrheumatic aortic (valve) stenosis
CPT/HCPCS: 99214

== ENCOUNTER → 2023-09-23 10:51 | Outpatient (BNVA) | payer MEDICARE, SELFPAY | PROVIDERS: PCP Internal Medicine; Visit Provider Internal Medicine Cardiovascular Disease | DX: G45.3 Amaurosis fugax (principal); I25.10 Atherosclerotic heart disease of native coronary artery without angina pectoris; I35.0 Nonrheumatic aortic (valve) stenosis | CPT/HCPCS: 99212 ==

== ENCOUNTER 2023-10-08 08:23 | Outpatient (REF) | payer MEDICARE, SELFPAY ==
--- NOTE | ~2023-10-08 | US_ITS ---
EXAMINATION: US EXTRACRANIAL CAROTID DUPLEX, BILATERAL CLINICAL INFORMATION: Visual disturbances. History of left endarterectomy in December 2013. Hypertension. Hyperlipidemia. COMPARISON: Carotid ultrasound 01/03/2014. TECHNIQUE: Real-time ultrasound and Doppler techniques (integrating B-mode 2-D vascular images, Doppler spectral analysis and color-flow Doppler imaging) were utilized to interrogate the extracranial carotid arteries, the vertebral arteries and proximal subclavian arteries bilaterally. The degree of stenosis is determined by criteria similar to NASCET. FINDINGS: Right Side: 1. There is moderate atherosclerotic plaque seen in the bifurcation/proximal ICA region. 2. The common carotid artery PSV proximally is 97 cm/s and distally 96 cm/s. 3. The proximal internal carotid artery velocities are 137 cm/s systolic and 22 cm/s diastolic. 4. The proximal external carotid artery PSV is 150 cm/s. 5. The vertebral artery shows antegrade flow. 6. The subclavian artery waveforms are normal. Left Side: 1. There is mild atherosclerotic plaque seen in the bifurcation/proximal ICA region. 2. The common carotid artery PSV proximally is 124 cm/s and distally 108 cm/s. 3. The proximal internal carotid artery velocities are 63 cm/s systolic and 14 cm/s diastolic. 4. The proximal external carotid artery PSV is 157 cm/s. 5. The vertebral artery shows antegrade flow. 6. The subclavian artery waveforms are normal. US/US carotid duplex BI IMPRESSION: 1. RIGHT: Moderate, hemodynamically significant stenosis of the proximal right internal carotid artery corresponding to a 50-79% stenosis by velocity criteria. 2. LEFT: Minimal, non-hemodynamically significant stenosis of the proximal left internal carotid artery corresponding to a 0-49% stenosis by velocity criteria. 3. Disease category is stable on the right and improved on the left compared to the study from 01/03/2014. History of endarterectomy in December 2013.
== END 2023-10-08 08:24 | disposition home or self-care (01) ==
LOC: HO.HMGCX 08:23
PROVIDERS: PCP Internal Medicine; Visit Provider Internal Medicine Cardiovascular Disease
DX: H53.9 Unspecified visual disturbance (principal); Z86.73 Personal history of transient ischemic attack (TIA), and cerebral infarction without residual deficits
CPT/HCPCS: 93880

== ENCOUNTER → 2023-11-11 10:48 | Outpatient (REF) | payer MEDICARE, SELFPAY ==
--- NOTE | 2023-11-11 10:50 | HM_ITS ---
Cardiac event monitor Indication: Amaurosis fugax Technique: Patient was hooked up to cardiac event monitor on 11/11/2023 for total period of 30 days with compliance rate of about 85%. Findings: Baseline was normal sinus rhythm with maximum heart rate of 93 beats per minute minimal heart rate of 49 beats per minute. There were no significant pauses noted. There were rare PACs and PVCs noted. No sustained arrhythmias or atrial fibrillation noted. Patient activated the button 14 times but only recorded twice in the diary without any associated symptoms reported correlating with sinus rhythm. Conclusion: 1. Baseline was normal sinus rhythm with no pauses 2. No evidence of atrial fibrillation 3. Rare ectopy noted 4. Patient reported events correlated with sinus rhythm MTDD
== END ==
LOC: HO.CARD 10:48
PROVIDERS: PCP Internal Medicine; Visit Provider Internal Medicine Cardiovascular Disease
DX: G45.3 Amaurosis fugax (principal)
CPT/HCPCS: 93270

== ENCOUNTER → 2023-11-11 10:50 | Outpatient (BNV) | payer MEDICARE, SELFPAY | PROVIDERS: PCP Internal Medicine; Visit Provider Internal Medicine Cardiovascular Disease | DX: I49.3 Ventricular premature depolarization (principal); G45.3 Amaurosis fugax | CPT/HCPCS: 93272 ==

== ENCOUNTER → 2023-11-13 10:49 | Outpatient (BNVA) | payer MEDICARE, SELFPAY | PROVIDERS: PCP Internal Medicine; Visit Provider Surgery Vascular Surgery ==

== ENCOUNTER 2023-11-13 11:02 | Outpatient (AMB) | payer MEDICARE, SELFPAY ==
--- NOTE | 2023-11-13 10:50 | MHC.OFFVIS ---
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 Avalos for carotid US. Pt states he is always tired and states his left eyes has been going blank . He states he just sees white in his left eye occasionally which will last for about 10 minutes. Pt states the last epsiode he had was about a week ago. 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 Actually presented to his [employer] for changes in vision in the left eye. Actually reported that it is occasional blanking out of the eye. It does recover. It has actually been going off and on for about a year. He had seen Dr. Laird from Ophthalmology was concerned about TIAs and was sent over to Cardiology. Cardiology has obtained noninvasive ultrasound testing. He now presents to us for vascular evaluation. Of note he had undergone a left carotid endarterectomy in December [address] Moreno at [facility]. At that time he was originally seen and worked up at [place] for a stroke. Subsequently transferred to [facility] where it was discovered that he had nearly 90% stenosis of the left side. Had undergone endarterectomy after that with no incidents. He has been lost to follow up with them. He now presents to us for vascular evaluation. Of note he is being maintained on 2 baby aspirin and high-dose statin. [facility] Medical History Achalasia Sleep apnea Hyperlipidemia CVA (cerebral vascular accident) Enlarged prostate with lower urinary tract symptoms (LUTS) HTN (hypertension) CAD (coronary artery disease) Surgical History History of prostate surgery History of left-sided carotid endarterectomy Hx of cardiac catheterization History of bladder surgery Family History Father Cancer Mother Cancer Social History (Updated 11/13/23 @ 10:55 by Radha Peck MA) Alcohol intake: never Patient Tobacco Use Status: Never used Tobacco Review of Systems Const All systems reviewed & are unremarkable except as noted in HPI and below Reports no additional complaints ENT Reports Normal hearing present Card Denies chest pain, Denies chest pain at rest, Denies chest pain with activity and Denies pedal edema Resp Denies cough GI Denies abdominal pain Musc Denies abnormal gait, Denies muscle cramps and Denies radiating pain into limb Skin/Breast Denies skin ulcer and Denies wounds Neuro Reports Normal hearing present and Denies abnormal gait Psych Reports no additional complaints Physical Exam Vital Signs: Last Vital Signs Pulse 72 11/13/23 10:51 BP 130/64 11/13/23 10:57 Pulse Ox 99 11/13/23 10:51 Oxygen Delivery Method Room Air 11/13/23 10:51 BMI result Body Mass Index 47.8 Const General: cooperative, healthy appearing and comfortable Orientation/consciousness: oriented to person, oriented to place and oriented to time HEENT Head: Yes normal to inspection Neck Neck: Yes normal visual inspection Carotids: no bruits Chest Chest palpation & inspection: normal inspection of the chest Resp Effort & Inspection: normal respiratory effort and able to speak in complete sentences Auscultation: clear to auscultation bilaterally, no crackles, no rales, no rhonchi and no wheezes Cardio Rate: regular rate Rhythm: regular rhythm Heart sounds: S1 normal heart sound present and S2 normal heart sound present Bruits: no carotid bruits Peripheral pulses: Peripheral pulses 2+ throughout GI Inspection: Yes normal to inspection Skin Wounds: no wounds Hair: normal Neuro General: oriented to person, oriented to place and oriented to time Cranial nerves: Yes CN's II-XII intact bilaterally and Yes Normal hearing present Cognition (Neuro): normal cognition Motor exam (neuro): 5/5 motor strength present throughout Extrem Other: venous exam: No significant superficial varicosities or spider telangiectasias, minimal edema General: No clubbing, No cyanosis and No edema Psych Appearance: grossly normal Mental Status: mental status grossly normal Speech and movement: Normal speech and movement present Results Reviewed Results Reviewed: Carotid ultrasound dated 10/08/2023 demonstrates right side 50-79% stenosis and left-sided 0-49% stenosis. Written report and images were reviewed. Assessment & Plan Assessment & Plan (1) Bilateral carotid artery stenosis: Code(s): I65.23 - Occlusion and stenosis of bilateral carotid arteries Plan: In short patient has questionable symptomatic carotid disease. We have reviewed signs and symptoms of a stroke along with amaurosis fugax. We also discussed risk factor modification inclusive a healthy diet low in cholesterol. I have taken the liberty of ordering CT angiogram of the carotids to better elucidate the true degree of stenosis and to follow-up on the left side. We will try to expedite this as there is question of amaurosis fugax.. Should there be any changes or signs or symptoms of a stroke we will be happy to see them back sooner. Thank you for allowing us to participate in this patient's care. If there are any questions or concerns please do not hesitate to contact us. Orders: Orders Blood Urea Nitrogen Today I65.23 - Occlusion and stenosis of bilateral carotid arteries Creatinine Today I65.23 - Occlusion and stenosis of bilateral carotid arteries CT angio neck 1 Week I65.23 - Occlusion and stenosis of bilateral carotid arteries Coding Level of Care Code New Pt Level 4 (55015) Diagnoses Bilateral carotid artery stenosis I65.23
[2023-11-13 10:51] VITALS: BP 138/70; PULSE 72; O2SAT 99; BMI 47.8
[2023-11-13 10:57] VITALS: BP 130/64
== END 2023-11-13 11:54 | disposition home or self-care (01) ==
PROVIDERS: PCP Internal Medicine; Visit Provider Surgery Vascular Surgery
DX: I65.23 Occlusion and stenosis of bilateral carotid arteries (principal)
CPT/HCPCS: 99204

== ENCOUNTER 2023-11-13 11:44 | Outpatient (REF) | payer MEDICARE, SELFPAY ==
[2023-11-13 14:45] LABS: Blood Urea Nitrogen 10 mg/dL (9-16); Estimated Glomerular Filt Rate > 60
== END 2023-11-13 11:45 | disposition home or self-care (01) ==
LOC: HO.HMGCLDS 11:44
PROVIDERS: PCP Internal Medicine; Visit Provider Surgery Vascular Surgery
DX: I65.23 Occlusion and stenosis of bilateral carotid arteries (principal); H53.9 Unspecified visual disturbance
CPT/HCPCS: 36415; 82565; 84520; 99202

== ENCOUNTER 2023-11-18 13:41 | Outpatient (REF) | payer MEDICARE, SELFPAY ==
--- NOTE | ~2023-11-18 | CT_ITS ---
EXAMINATION: CT ANGIOGRAM NECK WITH CONTRAST CLINICAL INFORMATION: Occlusion/stenosis bilateral carotid arteries. COMPARISON: Carotid ultrasound dated 10/08/2023. TECHNIQUE: CONTIGUOUS AXIAL CT IMAGES WERE OBTAINED FROM THE AORTIC ARCH TO THE SKULL BASE FOLLOWING THE ADMINISTRATION OF 50 ML OF OMNIPAQUE 350 INTRAVENOUS CONTRAST. THE DATA WAS TRANSFERRED TO AN INDEPENDENT WORKSTATION, WHERE 3-D RECONSTRUCTIONS WERE PERFORMED. The degree of stenosis determined by NASCET Criteria. THIS CT EXAMINATION WAS PERFORMED USING DOSE OPTIMIZATION TECHNIQUES APPROPRIATE, VARIOUSLY INCLUDING THE FOLLOWING: *AUTOMATED EXPOSURE CONTROL *ADJUSTMENT OF MA AND/OR KV ACCORDING TO PATIENT SIZE (THIS INCLUDES TECHNIQUES OR STANDARDIZED PROTOCOLS FOR TARGETED EXAMS WHERE DOSE IS MATCHED TO INDICATION/REASON FOR EXAM; I.E. EXTREMITIES OR HEAD) *USE OF ITERATIVE RECONSTRUCTION TECHNIQUE DLP: [id number] MGY-CM INTERPRETATION OF FILMS: NECK CTA: The visualized aorta is normal in caliber. The origins of the common carotid arteries are widely patent. There is calcific atherosclerotic disease at the origin of the right vertebral artery, which is dominant. The subclavian arteries are widely patent. The right common carotid artery is normal in caliber. There is partially calcified atherosclerotic plaque extending from the carotid bifurcation into the proximal aspect of the right internal carotid artery resulting in a moderate degree of luminal irregularity and mild proximal right internal carotid artery stenosis. The mid and distal aspects of the cervical right internal carotid artery demonstrates smooth luminal margins and are normal in caliber. The right external carotid artery is normal in caliber. The left common carotid artery is normal in caliber. There is partially calcified atherosclerotic plaque along the medial wall of this vessel. The cervical bifurcation is widely patent. There are surgical changes status post endarterectomy. There is mild luminal irregularity at the proximal aspect of the carotid bulb without significant narrowing. The mid and distal aspects of the cervical left internal carotid artery demonstrates smooth luminal margins and are normal in caliber. The dominant right vertebral artery is patent and has a normal course through the cervical region the V1 segment of the left vertebral artery demonstrates areas of multifocal irregularity. Differential considerations include the sequelae of chronic dissection versus atherosclerosis. Visualized intracranial vasculature is normal in appearance. OTHER: Lung apices are clear. SUMMARY: - There is partially calcified atherosclerotic plaque extending from the right carotid bifurcation into the proximal aspect of the right internal carotid artery resulting in a moderate degree of luminal irregularity and mild proximal right internal carotid artery stenosis. The mid and distal aspects of the cervical right internal carotid artery demonstrate smooth luminal margins and are normal in caliber. - The left common carotid artery is normal in caliber. There is partially calcified atherosclerotic plaque along the medial wall of this vessel. The left cervical bifurcation is widely patent. There are surgical changes status post endarterectomy. There is mild luminal irregularity at the proximal aspect of the carotid bulb without significant narrowing. The mid and distal aspects of the cervical left internal carotid artery demonstrate smooth luminal margins and are normal in caliber.
[2023-11-18] MEDS: iohexoL 350 MG/ML 100 ML INFUS..BTL IV (14:52)
== END 2023-11-18 13:42 | disposition home or self-care (01) ==
LOC: HO.CT 13:41
PROVIDERS: Visit Provider Surgery Vascular Surgery
DX: I65.23 Occlusion and stenosis of bilateral carotid arteries (principal)
CPT/HCPCS: 70498; Q9967

== ENCOUNTER 2023-11-20 09:42 | Outpatient (AMB) | payer MEDICARE, SELFPAY ==
[2023-11-20 10:04] VITALS: BMI 47.8
--- NOTE | 2023-11-20 10:04 | A.OFFVIS_ITS ---
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 There was question of a symptomatic stroke along with amaurosis fugax. He has had no other interval issues. He now presents for follow-up with CT angiogram. He has been seeing Dr. Laird from Ophthalmology. There was also concerns of TIAs. Of note he had undergone left carotid endarterectomy in December of [address] Moreno at [facility]. He is being maintained on 2 baby aspirin and high-dose statin. Now presents for follow-up evaluation. [facility] Medical History Achalasia Sleep apnea Hyperlipidemia CVA (cerebral vascular accident) Enlarged prostate with lower urinary tract symptoms (LUTS) HTN (hypertension) CAD (coronary artery disease) Surgical History History of prostate surgery History of left-sided carotid endarterectomy Hx of cardiac catheterization History of bladder surgery Family History Father Cancer Mother Cancer Social History Alcohol intake: never Patient Tobacco Use Status: Never used Tobacco Review of Systems Const All systems reviewed & are unremarkable except as noted in HPI and below Reports no additional complaints ENT Reports Normal hearing present Card Denies chest pain, Denies chest pain at rest, Denies chest pain with activity and Denies pedal edema Resp Denies cough GI Denies abdominal pain Musc Denies abnormal gait, Denies muscle cramps and Denies radiating pain into limb Skin/Breast Denies skin ulcer and Denies wounds Neuro Reports Normal hearing present and Denies abnormal gait Psych Reports no additional complaints Physical Exam Vital Signs: BMI result Body Mass Index 47.8 Const General: cooperative, healthy appearing and comfortable Orientation/consciousness: oriented to person, oriented to place and oriented to time HEENT Head: Yes normal to inspection Neck Neck: Yes normal visual inspection Carotids: no bruits Chest Chest palpation & inspection: normal inspection of the chest Resp Effort & Inspection: normal respiratory effort and able to speak in complete sentences Auscultation: clear to auscultation bilaterally, no crackles, no rales, no rhonchi and no wheezes Cardio Rate: regular rate Rhythm: regular rhythm Heart sounds: S1 normal heart sound present and S2 normal heart sound present Bruits: no carotid bruits Peripheral pulses: Peripheral pulses 2+ throughout GI Inspection: Yes normal to inspection Skin Wounds: no wounds Hair: normal Neuro General: oriented to person, oriented to place and oriented to time Cranial nerves: Yes CN's II-XII intact bilaterally and Yes Normal hearing present Cognition (Neuro): normal cognition Motor exam (neuro): 5/5 motor strength present throughout Extrem Other: venous exam: No significant superficial varicosities or spider telangiectasias, minimal edema General: No clubbing, No cyanosis and No edema Psych Appearance: grossly normal Mental Status: mental status grossly normal Speech and movement: Normal speech and movement present Results Reviewed Results Reviewed: CT angiogram performed on 11/18/2023 demonstrates right side 27% stenosis with high degree of calcification. Left side within normal limits. Written report and images were reviewed. In addition this case was discussed with the radiology team in an addendum was added to the original dictation. Assessment & Plan Assessment & Plan (1) Bilateral carotid artery stenosis: Code(s): I65.23 - Occlusion and stenosis of bilateral carotid arteries Plan: In short patient has asymptomatic carotid disease. I do not believe the carotids were the source of his issues. We have reviewed signs and symptoms of a stroke. We also discussed risk factor modification inclusive a healthy diet low in cholesterol. The patient will follow up with us with surveillance ultrasound of the carotids 6 months. Should there be any changes or signs or symptoms of a stroke we will be happy to see them back sooner. Thank you for allowing us to participate in this patient's care. If he decides to return to Dr. Moreno for further care will be happy to forward our records. If there are any questions or concerns please do not hesitate to contact us. Plan The patient had an opportunity to ask questions regarding the treatment plan. All questions were answered. Imaging studies, laboratory studies and physical exam results were discussed and reviewed in detail. No major barriers to understanding were identified. The patient expressed understanding and agreement with the above treatment plan. The patient is aware they should contact our office by phone for worsening of the current condition or the appearance of new symptoms. Thank you for allowing me to participate in the vascular care of this patient. If you have any questions or concerns regarding the treatment for the above condition please do not hesitate to contact me. The office telephone contact is [phone]. This note is constructed using voice recognition software. While every effort has been made to ensure accuracy, family member caretaker errors may have been included. Thank you for allowing me to participate in the care of your patient. Yours sincerely, Sohail Bucio MD, FACS, R.P.V.I. Orders: Orders US carotid duplex BI 6 Months I65.23 - Occlusion and stenosis of bilateral carotid arteries Coding Level of Care Code Est Pt Level 4 (04287) Diagnoses Bilateral carotid artery stenosis I65.23
== END 2023-11-20 10:38 | disposition home or self-care (01) ==
PROVIDERS: PCP Internal Medicine; Visit Provider Surgery Vascular Surgery
DX: I65.23 Occlusion and stenosis of bilateral carotid arteries (principal)
CPT/HCPCS: 99213

== ENCOUNTER → 2023-11-20 09:42 | Outpatient (BNVA) | payer MEDICARE, SELFPAY | PROVIDERS: PCP Internal Medicine; Visit Provider Surgery Vascular Surgery | DX: I65.23 Occlusion and stenosis of bilateral carotid arteries (principal) | CPT/HCPCS: 99212 ==

== ENCOUNTER 2024-01-14 06:53 | Day surgery (SDC) | payer MEDICARE, SELFPAY ==
[2024-01-12 11:54] VITALS: BMI 47.8
[2024-01-14 07:10] VITALS: BMI 47.7
[2024-01-14 07:29] VITALS: BP 148/63; PULSE 64; RESP 16; TEMP 36.2; O2SAT 98
[2024-01-14] MEDS: Lactated Ringers 1,000 ML 80 ML IVCONT (07:34)
--- NOTE | 2024-01-14 07:48 | P.CONAN_ITS ---
[facility] Active Problems Active Problems: All Active Problems (Updated 11/13/23 @ 11:41 by Sohail Bucio MD) Bilateral carotid artery stenosis (Acute) Aortic stenosis (Acute) Bladder cancer (Acute) Enlarged prostate with lower urinary tract symptoms (LUTS) (Acute) HTN (hypertension) (Acute) CAD (coronary artery disease) (Acute) Past Medical History Medical History Achalasia Sleep apnea Hyperlipidemia CVA (cerebral vascular accident) Enlarged prostate with lower urinary tract symptoms (LUTS) HTN (hypertension) CAD (coronary artery disease) Family History Family History Father Cancer Mother Cancer Family history of problems with anesthesia: No Surgical History Surgical History (Updated 01/12/24 @ 11:48 by Diana Zaragoza RN) History of esophagogastroduodenoscopy (EGD) H/O colonoscopy History of prostate surgery History of left-sided carotid endarterectomy Hx of cardiac catheterization History of bladder surgery History of Problems with Anesthesia: Yes (Woke up during colooscop) Social History Social History Alcohol intake: never Patient Tobacco Use Status: Never used Tobacco Use of substances other than those prescribed or required for medical reasons: No Are you DNR?: No Advance Directives: No Advance Directives Information Provided: Yes Meds Allergies Allergy/AdvReac Type Severity Reaction Status Date / Time Penicillins [PENICILLINS] Allergy Intermediate HIVES Verified 11/20/23 10:05 Active Medications: Current Medications Lactated Ringer's (Lr) 1,000 mls @ 80 mls/hr IVCONT .[id number] WILBERTO Last Admin: 01/14/24 07:34 Dose: 80 mls/hr Home Medications Medication Instructions Recorded Confirmed Last Taken Type atenolol 100 mg tablet 100 mg PO DAILY 06/12/21 01/14/24 01/14/24 History omeprazole 20 mg capsule,delayed 20 mg PO DAILY 06/12/21 01/14/24 01/13/24 History release aspirin 81 mg tablet,delayed 162 mg PO DAILY 06/09/23 01/12/24 01/09/24 History release (Adult Aspirin Regimen) Exam Height,Weight and Vital Signs: Height 5 ft 11 in Weight 155.129 kg Last Vital Signs Temp 97.2 F 01/14/24 07:29 Pulse 64 01/14/24 07:29 Resp 16 01/14/24 07:29 BP 148/63 H 01/14/24 07:29 Pulse Ox 98 01/14/24 07:29 O2 Del Method Room Air 01/14/24 07:29 Airway Mallampati Class: II TM Dist: >3cm Neck ROM: Full Loose/Missing/Broken Teeth: No Heart: rrr Lungs: cta Assessment and Plan Final Anesthetic Review Family History of Problems with Anesthesia: No History of Problems with Anesthesia: Yes (Woke up during colooscop) NPO: Yes ASA Class: III Final Preanesthetic Review: No Changes in Pt Med Stat, Meds/Allgs Chart Reviewed, Consent Obtained/Reviewed and Anes Risks/Benef Reviewed Patient Risk: Intermediate Procedure Risk: Intermediate Anesthetic Plan Anesthetic Plan: MAC: Disposition: Standard PACU
[2024-01-14 09:15] VITALS: BP 92/49; PULSE 68; RESP 20; TEMP 36.2; O2SAT 95
--- NOTE | 2024-01-14 09:21 | PM.OP ---
Brief Operative Note Date of Service: 01/14/24 Pre-op diagnosis: Jameson's Post-op diagnosis: other (Same, Gastric polyps) Procedure: EGD with biopsies, WATS brushings, and Cypher Surgeon: Brenden Diana MD Anesthesia: MAC Was an Brick And Tile Making Machine Operator used for this Procedure?: No Estimated blood loss (mL): 2.0 Pathology: other (A. Esophagus 38-40cm) Condition: stable Disposition: PACU
[2024-01-14 09:30] VITALS: BP 104/48; PULSE 68; RESP 16; TEMP 36.2; O2SAT 95
--- NOTE | 2024-01-14 09:40 | OP_ITS ---
DATE OF SERVICE: 01/14/2024 SURGEON: Brenden Diana MD INDICATIONS: Patient presents for evaluation of gastroesophageal reflux, underlying history of achalasia, history of Jameson esophagus, and previous biopsies with indefinite dysplasia. Full consent has been obtained from him for this, including risks of bleeding and perforation. PREOPERATIVE DIAGNOSIS: Jameson esophagus with indefinite dysplasia. POSTOPERATIVE DIAGNOSIS: PROCEDURE PERFORMED: ESTIMATED BLOOD LOSS: COMPLICATIONS: ANESTHESIA: Monitored anesthesia care. ASSISTANTS: SPECIMENS: POSTOPERATIVE DIAGNOSES: Jameson esophagus with indefinite dysplasia, small hiatal hernia, inflammatory gastric polyps. PROCEDURES PERFORMED: Esophagogastroduodenoscopy with biopsies, WATS brushings, and tissue for Cypher analysis. DESCRIPTION OF PROCEDURE: The patient was placed in the left lateral decubitus position. The Olympus video gastroscope was passed in the posterior oropharynx and upper esophagus under direct vision. The scope was passed slowly into the distal esophagus. The esophagus was somewhat tortuous and dilated with some increased amount of secretions consistent with the underlying history of achalasia. The gastroesophageal junction appeared at 40 cm. Extending from this to 38 cm, were patches of Jameson mucosa. This was not circumferential. There was no overlying lesion or ulceration. There was no esophagitis. The scope entered the stomach and was advanced to the pylorus. The duodenum was cannulated to the descending portion. The duodenum including the bulb appeared normal without mass or ulceration. The scope was withdrawn back to the stomach. The gastric antrum appeared normal with good peristalsis. The stomach from the very proximal most area beneath the EG junction to the body of the stomach was notable for multiple polyps, many of which appeared inflammatory in nature. These were not biopsied as they had been biopsied in the past without any significant findings besides just inflammatory and hyperplastic tissue. The proximal stomach was visualized in the retroflexed position as well. The scope was withdrawn back to the esophagus. I obtained multiple biopsies from the Jameson's-appearing mucosa between 38 and 40 cm. I then obtained WATS brushings from those same areas. Overall, the area was difficult to really get a good angle at the biopsies due to a lot of spasm and his previous history of achalasia. Proximal to 38 cm, the esophageal mucosa appeared normal. Again, the esophagus appeared to be dilated and somewhat fluid-filled consistent with the achalasia. The scope was withdrawn from the patient. He tolerated the procedure well and was returned to the recovery area in stable condition. IMPRESSION: 1. History of Jameson esophagus. 2. History of achalasia. 3. Inflammatory gastric polyps. PLAN: The results of the biopsies will be checked. He will continue his omeprazole. He was advised to resume his aspirin in 48 hours. He will see me later in the year for a followup visit and further plans regarding future endoscopies and/or ablation procedures of the Jameson esophagus will be made at that time based on the biopsy results. This has been discussed with his . MD DANIEL Kidd/CINDY / [phone]
== END 2024-01-14 10:14 | disposition home or self-care (01) ==
PROVIDERS: PCP Internal Medicine; Visit Provider Internal Medicine
PROC: 0DJ08ZZ Inspection of Upper Intestinal Tract, Via Natural or Artificial Opening Endoscopic (ICD-10-PCS; CPT 43235; principal; 2024-01-14 08:40)
DX: K22.719 Barrett's esophagus with dysplasia, unspecified (principal); K31.7 Polyp of stomach and duodenum; K31.A0 Gastric intestinal metaplasia, unspecified; K44.9 Diaphragmatic hernia without obstruction or gangrene; K22.0 Achalasia of cardia; I10 Essential (primary) hypertension; E78.5 Hyperlipidemia, unspecified; Z85.51 Personal history of malignant neoplasm of bladder; Z86.73 Personal history of transient ischemic attack (TIA), and cerebral infarction without residual deficits; G47.30 Sleep apnea, unspecified; Z79.82 Long term (current) use of aspirin; Z79.899 Other long term (current) drug therapy; Z99.89 Dependence on other enabling machines and devices; Z88.0 Allergy status to penicillin; Z98.890 Other specified postprocedural states
CPT/HCPCS: 43239; 88305; 88313; J2704

== ENCOUNTER 2024-03-25 12:27 | Outpatient (AMB) | payer MEDICARE, SELFPAY ==
--- NOTE | 2024-03-25 12:37 | MHC.OFFVIS ---
Vital Signs 03/25/24 12:40 Height 5 ft 11 in Weight 328 lb 7.82 oz BMI 45.8 BP 114/74 Blood Pressure Location Lt brachial Position Sitting Pulse 64 Intake Visit Reasons: 6 mth f/up Intake Note: 6 month follow-up with ekg c/o fatigue Fireboat Operator Required: No Pre Sales Technical Consultant: Pre Sales Technical Consultant Present Accompanied by: Spouse Allergies Penicillins [PENICILLINS] Allergy (Intermediate, Verified 11/20/23 10:05) HIVES Medication List - Last Reconciled 03/25/24 by Allen Avalos MD aspirin (Adult Aspirin Regimen) 162 mg PO DAILY atenolol 100 mg PO DAILY atorvastatin 80 mg PO DAILY isosorbide mononitrate ER 60 mg PO DAILY lisinopril 10 mg PO DAILY omeprazole 20 mg PO DAILY HPI Comments Details: Tiburcio comes for follow-up. He has no new symptoms of angina. Takes all his medications. His last LDL is well optimized. His cardiac event monitor did not show any evidence of atrial fibrillation. Carotid duplex were stable as per vascular surgery. He is taking all his medications. He does not exercise much. Complains of fatigue with exercise. Denies any worsening shortness of breath. No orthopnea, PND, leg edema. No angina. No lightheadedness, syncope, palpitations. [facility] Medical History Achalasia Sleep apnea Hyperlipidemia CVA (cerebral vascular accident) Enlarged prostate with lower urinary tract symptoms (LUTS) HTN (hypertension) CAD (coronary artery disease) Surgical History (Updated 01/12/24 @ 11:48 by Diana Zaragoza RN) History of esophagogastroduodenoscopy (EGD) H/O colonoscopy History of prostate surgery History of left-sided carotid endarterectomy Hx of cardiac catheterization History of bladder surgery Family History Father Cancer Mother Cancer Social History Alcohol intake: never Patient Tobacco Use Status: Never used Tobacco Review of Systems Const Denies chills, Denies fatigue, Denies fever(s), Denies frequent falls, Denies weakness, Denies weight gain and Denies weight loss ENT Denies dizziness Card Denies chest pain, Denies leg edema, Denies lightheadedness, Denies palpitations, Denies dyspnea, Denies dyspnea on exertion, Denies orthopnea and Denies other (loss of consciousness) Resp Denies cough, Denies dyspnea and Denies dyspnea on exertion GI Denies hematochezia and Denies change in stool character Musc Denies abnormal gait, Denies muscle weakness, Denies numbness, Denies radiating pain into limb and Denies tingling Neuro Denies abnormal gait, Denies dizziness, Denies frequent falls, Denies numbness, Denies tingling and Denies weakness Endo Denies fatigue and Denies palpitations Physical Exam Vital Signs: Last Vital Signs Pulse 64 03/25/24 12:40 BP 114/74 03/25/24 12:40 BMI result Body Mass Index 45.8 Const General: cooperative, comfortable, no acute distress, alert and awake Nutritional Appearance: obese morbidly obese Orientation/consciousness: patient oriented x3 Limitations: no limitations Neck Neck: Yes trachea midline, Yes supple and Yes no JVD Carotids: bruit bilateral Resp Effort & Inspection: normal respiratory effort Auscultation: clear to auscultation bilaterally Cardio Jugular venous distension: no JVD Rate: regular rate Rhythm: regular rhythm Heart sounds: S1 normal heart sound present, S2 normal heart sound present, no click, no gallops, Murmur heart sound present systolic early, decrescendo and crescendo and no rubs Peripheral pulses: Peripheral pulses 2+ throughout GI Inspection: Yes Abdominal panniculus present and Yes obesity Auscultation: normal bowel sounds Skin General skin exam: no rashes or lesions noted Neuro General: patient oriented x3 and no focal motor deficits Extrem General: Yes no clubbing, cyanosis or edema Office Procedures EKG Details: EKG shows normal sinus rhythm with left axis deviation with minimal voltage criteria for LVH otherwise no significant abnormality [id number], Complete Assessment & Plan Assessment & Plan (1) CAD (coronary artery disease): Code(s): I25.10 - Atherosclerotic heart disease of [place] coronary artery without angina pectoris Category: Medical Plan: Diffuse vascular disease including branch vessel coronary artery disease and bilateral carotid disease. Patient currently stable with no symptoms of angina. This point time will continue to treat aggressively with medical therapy. He has not having any recurrent visual symptoms. Was felt that his visual symptoms are not related to carotid disease and he does not have any evidence of atrial fibrillation. Continue low-dose aspirin therapy for life. Continue aggressive blood pressure control which is currently well optimized. Continue high-intensity statin therapy with well optimized LDL. (2) Aortic stenosis: Code(s): I35.0 - Nonrheumatic aortic (valve) stenosis Category: Medical Plan: Aortic stenosis which appears to be mild clinically. Will follow-up echocardiogram next year. Continue aggressive vascular risk factor modifications above. No interventions required per se for aortic stenosis except for medical therapy. His symptoms of fatigue most likely related to deconditioning. Encouraged to increase activity level and participate in weight loss program. Will follow up in the clinic in 1 year's time, sooner p.r.n.. Orders: Orders CA echo transthoracic complete 1 Year I35.0 - Nonrheumatic aortic (valve) stenosis Coding Level of Care Code Est Pt Level 4 (77905) Diagnoses CAD (coronary artery disease) I25.10 Aortic stenosis I35.0 CPT Codes EKG - CPT: 39839-[id number], Complete ([id number])
[2024-03-25 12:40] VITALS: BP 114/74; PULSE 64; BMI 45.8
== END 2024-03-25 13:03 | disposition home or self-care (01) ==
PROVIDERS: PCP Internal Medicine; Visit Provider Internal Medicine Cardiovascular Disease
DX: I25.10 Atherosclerotic heart disease of native coronary artery without angina pectoris (principal); I35.0 Nonrheumatic aortic (valve) stenosis
CPT/HCPCS: 93010; 99214

== ENCOUNTER → 2024-03-25 12:27 | Outpatient (BNVA) | payer MEDICARE, SELFPAY | PROVIDERS: PCP Internal Medicine; Visit Provider Internal Medicine Cardiovascular Disease | DX: I25.10 Atherosclerotic heart disease of native coronary artery without angina pectoris (principal); I10 Essential (primary) hypertension; I35.0 Nonrheumatic aortic (valve) stenosis | CPT/HCPCS: 93005; 99212 ==

== ENCOUNTER → 2024-05-25 08:41 | Outpatient (REF) | payer MEDICARE, SELFPAY ==
--- NOTE | ~2024-05-25 | US_ITS ---
EXAMINATION: US EXTRACRANIAL CAROTID DUPLEX, BILATERAL CLINICAL INFORMATION: Bilateral carotid artery stenosis. Left carotid endarterectomy 2013 COMPARISON: Carotid duplex 10/08/2023 TECHNIQUE: Real-time ultrasound and Doppler techniques (integrating B-mode 2-D vascular images, Doppler spectral analysis and color-flow Doppler imaging) were utilized to interrogate the extracranial carotid arteries, the vertebral arteries and proximal subclavian arteries bilaterally. The degree of stenosis is determined by criteria similar to NASCET. FINDINGS: Right Side: 1. There is moderate atherosclerotic plaque seen in the bifurcation/proximal ICA region. 2. The common carotid artery PSV proximally is 106 cm/s and distally before cm/s. 3. The proximal internal carotid artery velocities are 98.8 cm/s systolic and 5 cm/s diastolic. 4. The proximal external carotid artery PSV is 124 cm/s. 5. The vertebral artery shows antegrade flow. 6. The subclavian artery waveforms are normal. Left Side: 1. There is mild atherosclerotic plaque seen in the bifurcation/proximal ICA region. 2. The common carotid artery PSV proximally is 140 cm/s and distally 3 cm/s. 3. The proximal internal carotid artery velocities are 68 cm/s systolic and 25 cm/s diastolic. 4. The proximal external carotid artery PSV is 153 cm/s. 5. The vertebral artery shows antegrade flow. 6. The subclavian artery waveforms are normal. US/US carotid duplex BI IMPRESSION: 1. RIGHT: Moderate, hemodynamically significant stenosis of the proximal right internal carotid artery corresponding to a 50-79% stenosis by velocity criteria. 2. LEFT: Minimal, non-hemodynamically significant stenosis of the proximal left internal carotid artery corresponding to a 0-49% stenosis by velocity criteria. 3. There is no change in the category severity of disease when compared to the previous study dated 10/08/2023.
--- NOTE | 2024-05-25 08:47 | CA_ITS ---
Transthoracic Echocardiogram Patient (Last, First, Middle): Phill Mccallum B Gender: Male Date of : 1950 Age: 74 Procedure Date: 05/25/2024 Procedure Type: Transthoracic Echocardiogram Location: OP Height: 180.34 cm Weight: 148.78 kg BSA: 2.60 m2 Heart Rate: 67 bpm BP: 142 / 68 mmHg Hearing Aid Mechanic: SB Referring MD: Allen Avalos MD Sprinkling System Installer: Allen Avalos MD Symptoms: I35.0 - Nonrheumatic aortic (valve) stenosis Study Quality: Fair ECG Rhythm: Sinus Conclusions: - 1. Hyperdynamic LV ejection fraction greater than 70% with grade 2 diastolic dysfunction 2. Mild aortic stenosis 3. Mildly dilated ascending aorta at 4.2 cm 4. Normal RV systolic pressure Findings Procedure Information Contrast agent, definity, is being given per protocol without apparent complications. The quality of the study was technically difficult. The study quality is limited by patients body habitus. Left Ventricle Normal left ventricular cavity size. There is normal left ventricular wall thickness. The left ventricular systolic function is hyperdynamic. The visually estimated ejection fraction is >70%. Spectral Doppler is indicative of a pseudonormal filling pattern. E/E prime ratio is >15, consistent with elevated filling pressures. Evidence suggests grade II (moderate) diastolic dysfunction. Right Ventricle The right ventricle was not well visualized. Mildly increased right ventricular cavity size. There is borderline right ventricular systolic function. Atria The left atrium was not well visualized. Interatrial shunt cannot be excluded. The right atrium was not well visualized. Aortic Valve There is mild calcification of the aortic valve. There is mild thickening of the aortic valve. There is mild aortic valve stenosis. The peak aortic gradient is 27 mmHg.The mean gradient is 16 mmHg. The aortic valve area is 1.81 cm2. There is trace (trivial) aortic valve regurgitation. Mitral Valve The mitral valve was not well visualized. There is mild mitral annular calcification. There is trace mitral valve regurgitation. There is no mitral valve stenosis. Pulmonic Valve The pulmonic valve was not well visualized. Tricuspid Valve Likely normal tricuspid valve structure and function. There is trace tricuspid valve regurgitation. The right ventricular systolic pressure is normal. The right ventricular systolic pressure is 23 mmHg. Normal right atrial pressure. There is no evidence of pulmonary hypertension. Great Vessels The aorta was not well visualized. The pulmonary artery was not well visualized. There is mild dilatation of the ascending aorta measuring 4.20 cm. Venous The inferior vena cava is normal in size. Pericardium/Pleural The pericardium was not well visualized. Measurements 2D Linear Measurements IVSd: 0.91 0.6-0.9/0.6-1.0 cm LVIDd: 4.88 3.9-5.3/4.2-5.9 cm LVIDd Index: 1.88 2.4-3.2/2.2-3.1 cm/m2 LA Diam: 4.30 2.7-3.8/3.0-4.0 cm LAIDs Index: 1.65 1.5-2.3 cm/m2 LVOT Diam: 2.30 3.0+(-)1.3 cm 2D Systolic Function EF 4C: 76.10 >55% Mitral Valve MV Pk E: 1.08 MV PK A: 0.97 MV Decel Time: 233.00 E/A: 1.10 E'Lateral: 4.46 E'Medial: 4.24 E/E' Med: 25.50 E/E' Lat: 24.20 PHT: 68.00 MVA PHT: 3.24 Decel Sierra: 4.66 Aortic Valve AoV Pk Heber: 2.59 AoV Mn Heber: 1.93 AoV VTI: 0.66 AoV Pk Grad: 27.00 Aov Mn Grad: 16.00 NOEMY Cont.VTI: 1.81 LVOT LVOT Pk Heber: 1.15 LVOT Mn Heber: 0.82 LVOT VTI: 0.29 LVOT Pk Grad: 5.00 LVOT Mn Grad: 3.00 LVOT Diam: 2.30 LVOT Area: 4.15 Diastolic Function MV Pk E: 1.08 MV Pk A: 0.97 E/A: 1.10 E'Medial: 4.24 E/E' Med: 25.50 E' Laterial: 4.46 E/E' Lat: 24.20 Right Ventricle TAPSE (mm): 17.10 TVS' Heber: 10.00 Tricuspid Valve TR Pk Heber: 2.26 TR Pk Grad: 20.00 RA Press: 3.00 RVSP: 23.00 Great Vessels Aorta Sinus of Valsalva: 4.10 2.0-3.5 cm Ao Asc: 4.20 2.1-3.4 cm Pulmonary Valve PV Pk Heber: 0.97 Peak PV Grad: 4.00 Updated in Other Vendor System with Status of Final Allen Avalos MD electronically signed on 05/25/2024 12:03:09 PM with status of Final
== END ==
LOC: HO.CARD 08:41
PROVIDERS: PCP Internal Medicine; Referring Provider Surgery Vascular Surgery; Visit Provider Internal Medicine Cardiovascular Disease
DX: I65.23 Occlusion and stenosis of bilateral carotid arteries (principal); I35.0 Nonrheumatic aortic (valve) stenosis
CPT/HCPCS: 93306; 93880; Q9957

== ENCOUNTER → 2024-05-25 08:47 | Outpatient (BNV) | payer MEDICARE, SELFPAY | PROVIDERS: PCP Internal Medicine; Referring Provider Surgery Vascular Surgery; Visit Provider Internal Medicine Cardiovascular Disease | DX: I35.0 Nonrheumatic aortic (valve) stenosis (principal); I35.8 Other nonrheumatic aortic valve disorders; I34.81 Nonrheumatic mitral (valve) annulus calcification | CPT/HCPCS: 93306 ==

== ENCOUNTER 2024-06-24 13:50 | Outpatient (AMB) | payer MEDICARE, SELFPAY ==
[2024-06-24 13:59] VITALS: BP 122/64; BMI 45.7
--- NOTE | 2024-06-24 13:59 | MHC.OFFVIS ---
Vital Signs 06/24/24 13:59 Height 5 ft 11 in Weight 328 lb BMI 45.7 BP 122/64 Blood Pressure Location Lt brachial Position Sitting Intake Visit Reasons: 6 mo follow up carotid US 05/25/24 Intake Note: 6 mo follow up carotid US 05/25/24 w/ hx Left cEA @ [facility] (). 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 Accompanied by: Spouse Allergies Penicillins [PENICILLINS] Allergy (Intermediate, Verified 06/24/24 14:19) HIVES HPI HPI 6 mo follow up carotid US 05/25/24: Details: Very pleasant 74-year-old gentleman presents for follow-up regarding carotid stenosis. He reports he has been doing fairly well since his last visit. He had undergone left carotid endarterectomy nearly 10 years ago. He is being maintained on to aspirin and high-dose statin. Of note upon discussion with him he does report once or twice a month of a grade out area in his left eye. It immediately resolves and he is able to carry out his other functions. He has seen Dr. Laird regarding this. He now presents to us for follow-up. [facility] Medical History Achalasia Sleep apnea Hyperlipidemia CVA (cerebral vascular accident) Enlarged prostate with lower urinary tract symptoms (LUTS) HTN (hypertension) CAD (coronary artery disease) Surgical History History of esophagogastroduodenoscopy (EGD) H/O colonoscopy History of prostate surgery History of left-sided carotid endarterectomy Hx of cardiac catheterization History of bladder surgery Family History Father Cancer Mother Cancer Social History Alcohol intake: never Patient Tobacco Use Status: Never used Tobacco Review of Systems Const All systems reviewed & are unremarkable except as noted in HPI and below Reports no additional complaints ENT Reports Normal hearing present Card Denies chest pain, Denies chest pain at rest, Denies chest pain with activity and Denies pedal edema Resp Denies cough GI Denies abdominal pain Musc Denies abnormal gait, Denies muscle cramps and Denies radiating pain into limb Skin/Breast Denies skin ulcer and Denies wounds Neuro Reports Normal hearing present and Denies abnormal gait Psych Reports no additional complaints Physical Exam Vital Signs: Last Vital Signs BP 122/64 06/24/24 13:59 BMI result Body Mass Index 45.7 Const General: cooperative, healthy appearing and comfortable Orientation/consciousness: oriented to person, oriented to place and oriented to time HEENT Head: Yes normal to inspection Neck Neck: Yes normal visual inspection Carotids: no bruits Chest Chest palpation & inspection: normal inspection of the chest Resp Effort & Inspection: normal respiratory effort and able to speak in complete sentences Auscultation: clear to auscultation bilaterally, no crackles, no rales, no rhonchi and no wheezes Cardio Rate: regular rate Rhythm: regular rhythm Heart sounds: S1 normal heart sound present and S2 normal heart sound present Bruits: no carotid bruits Peripheral pulses: Peripheral pulses 2+ throughout GI Inspection: Yes normal to inspection Skin Wounds: no wounds Hair: normal Neuro General: oriented to person, oriented to place and oriented to time Cranial nerves: Yes CN's II-XII intact bilaterally and Yes Normal hearing present Cognition (Neuro): normal cognition Motor exam (neuro): 5/5 motor strength present throughout Extrem Other: venous exam: No significant superficial varicosities or spider telangiectasias, minimal edema General: No clubbing, No cyanosis and No edema Psych Appearance: grossly normal Mental Status: mental status grossly normal Speech and movement: Normal speech and movement present Results Reviewed Results Reviewed: Noninvasive carotid testing dated 05/25/2024 demonstrates right side 50-79% and left-sided 0-49% stenosis written report and images were reviewed and this was compared to the CT scan steady from 11/18/2023. Assessment & Plan Assessment & Plan (1) Bilateral carotid artery stenosis: Code(s): I65.23 - Occlusion and stenosis of bilateral carotid arteries Category: Medical Plan: In short patient has asymptomatic carotid disease. I do not believe that his visual disturbances are from his carotids. Unclear etiology of this and may need rereferral to Ophthalmology regarding this. We have reviewed signs and symptoms of a stroke. We also discussed risk factor modification inclusive a healthy diet low in cholesterol. The patient will follow up with us with surveillance ultrasound of the carotids 1 year. Should there be any changes or signs or symptoms of a stroke we will be happy to see them back sooner. Thank you for allowing us to participate in this patient's care. If there are any questions or concerns please do not hesitate to contact us. Please note a longitudinal relationship has been created with the patient and we have been following and surveillance this chronic condition. Orders: Orders US carotid duplex BI 1 Year I65.23 - Occlusion and stenosis of bilateral carotid arteries Coding Level of Care Code Est Pt Level 4 (67669) Complex EM visit Add On G2211 Diagnoses Bilateral carotid artery stenosis I65.23
== END 2024-06-24 14:30 | disposition home or self-care (01) ==
PROVIDERS: PCP Internal Medicine; Visit Provider Surgery Vascular Surgery
DX: I65.23 Occlusion and stenosis of bilateral carotid arteries (principal)
CPT/HCPCS: 99214; G2211

== ENCOUNTER → 2024-06-24 13:50 | Outpatient (BNVA) | payer MEDICARE, SELFPAY | PROVIDERS: PCP Internal Medicine; Visit Provider Surgery Vascular Surgery | DX: I65.23 Occlusion and stenosis of bilateral carotid arteries (principal) | CPT/HCPCS: 99212 ==

== ENCOUNTER → 2025-03-15 12:36 | Outpatient (REF) | payer MEDICARE, SELFPAY ==
--- NOTE | 2025-03-15 12:40 | CA_ITS ---
Transthoracic Echocardiogram Patient (Last, First, Middle): Phill Mccallum B Gender: Male Date of : 1950 Age: 74 Procedure Date: 03/15/2025 Procedure Type: Transthoracic Echocardiogram Location: OP Height: 180.34 cm Weight: 158.76 kg BSA: 2.68 m2 Heart Rate: 61 bpm BP: 140 / 60 mmHg Manufacturing Engineer Assembly: [id number] Referring MD: Allen Avalos MD Field Auto Appraiser: Allen Avalos MD Symptoms: I35.0 - Nonrheumatic aortic (valve) stenosis Study Quality: Technically Difficult w/Contrast ECG Rhythm: Sinus Conclusions: - 1. Technically limited study despite use of contrast agent 2. Normal LV ejection fraction of 60-65% with mild LVH 3. Mild aortic stenosis 4. Mildly dilated ascending aorta Findings Procedure Information Contrast agent, definity, is being given per protocol without apparent complications. The study quality is limited by patients body habitus. Left Ventricle Normal left ventricular size and systolic function. There is mildly increased left ventricular wall thickness. The visually estimated ejection fraction is between 60-65%. Spectral Doppler is indicative of an impaired relaxation filling pattern. Right Ventricle The right ventricle was not well visualized. Atria The left atrium was not well visualized. Interatrial shunt cannot be excluded. The right atrium was not well visualized. Aortic Valve The aortic valve was not well visualized. There is mild calcification of the aortic valve. There is mild aortic valve stenosis. The peak aortic gradient is 23 mmHg.The mean gradient is 12 mmHg. Mitral Valve The mitral valve was not well visualized. Pulmonic Valve The pulmonic valve was not well visualized. Tricuspid Valve The tricuspid valve was not well visualized. Tricuspid regurgitation envelope is inadequate for calculation of right ventricular systolic pressure. Great Vessels The pulmonary artery was not well visualized. There is mild dilatation of the ascending aorta measuring 4.10 cm. The pulmonary artery is mildly dilated. Venous The inferior vena cava was not well visualized. Pericardium/Pleural The pericardium was not well visualized. Prior Study Comparison No significant change compared to prior study dated: 05/25/2024. Measurements 2D Linear Measurements IVSd: 1.24 0.6-0.9/0.6-1.0 cm LVIDd: 3.73 3.9-5.3/4.2-5.9 cm LVIDd Index: 1.39 2.4-3.2/2.2-3.1 cm/m2 LVIDs: 2.76 2.0-3.6 cm LVPWd: 1.44 0.7-1.1 cm LA Diam: 4.10 2.7-3.8/3.0-4.0 cm LAIDs Index: 1.53 1.5-2.3 cm/m2 LV Mass: 219.94 67-162/88-224 g LV Mass Index: 82.07 43-95/49-115 g/m2 LVOT Diam: 2.50 3.0+(-)1.3 cm 2D Systolic Function EF 4C: 62.30 >55% EF 2C: 63.10 >55% EF BiP: 63.50 >55% Mitral Valve MV Pk E: 0.88 MV PK A: 0.99 MV Decel Time: 271.00 E/A: 0.90 E'Lateral: 6.42 E'Medial: 5.11 E/E' Med: 17.20 E/E' Lat: 13.70 PHT: 79.00 MVA PHT: 2.78 Decel [place]: 3.24 Aortic Valve AoV Pk Heber: 2.38 AoV Mn Heber: 1.62 AoV VTI: 0.57 AoV Pk Grad: 23.00 Aov Mn Grad: 12.00 NOEMY Cont.VTI: 2.48 LVOT LVOT Pk Heber: 1.08 LVOT Mn Heber: 0.76 LVOT VTI: 0.29 LVOT Pk Grad: 5.00 LVOT Mn Grad: 3.00 LVOT Diam: 2.50 LVOT Area: 4.91 Diastolic Function MV Pk E: 0.88 MV Pk A: 0.99 E/A: 0.90 E'Medial: 5.11 E/E' Med: 17.20 E' Laterial: 6.42 E/E' Lat: 13.70 Right Ventricle TAPSE (mm): 16.90 TVS' Heber: 11.10 Tricuspid Valve RA Press: 3.00 Great Vessels Aorta Sinus of Valsalva: 4.10 2.0-3.5 cm Ao Asc: 4.10 2.1-3.4 cm Ao Arch: 3.50 Pulmonary Valve PV Pk Heber: 0.91 Peak PV Grad: 3.00 Updated in Other Vendor System with Status of Final Allen Avalos MD electronically signed on 03/16/2025 3:44:25 PM with status of Final
--- OUTSIDE RECORDS SUMMARY | 2025-03-15 12:40 | XMS_ITS ---
Author Organization [facility] Address [address] [place] [address] Care Team Providers Care Nurse Practitioner Name Role Phone Eric Pulido MD Primary Care Provider Brenden Cuellar Unavailable [phone] Allergies Allergen (clinical drug ingredient) Drug/Non Drug Allergy documented on EMR Reaction Allergy Type Onset Date Status Penicillin Unknown Drug Allergy Active REASON FOR VISIT Patient presents today for gerd Medications Medication SIG (Take, Route, Frequency, Duration) Notes Start Date End Date Status Aspirin 81 MG 2 Orally Once a day Active Atorvastatin Calcium 80 MG 1 tablet Oral ly Once a day Active Vitamin D 1000 UNIT 1 tablet Orally Once a day Active Omeprazole 20 MG TAKE 1 CAPSULE DAILY for 90 Active Fiber Active Centrum Silver Activ e Lisinopril 10 MG 1 tablet and half Or ally Once a day Active Atenolol 100 MG 1 tablet Orally Once a day Active Isosorbide Mononitrate ER 60 MG 1 tablet Orally Once a day Active Social History Alcohol Screen Question Answer Notes Did you have a drink containing alcohol in the p ast year? No Points 0 Interpretation Negative Section Notes: Nonsmoker; occ. 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 Vital Signs Temperature 97.1 degrees Fahrenheit 10/09/20 23 Blood pressure systolic 00 mm Hg 10/09/20 23 Blood pressure diastolic 00 mm Hg 023 Height 71 in 10/09/2023 Weight 337 lbs 10/09/2023 BMI 47.00 kg/m2 10/09/2023 Encounters Encounter Location Date Provider Diagnosis [facility] [address] [place] [address] 10/09/2023 Brenden Diana Jameson's esophagus with dysplasia K22.719 Assessments Encounter Date Diagnosis (ICD Code) Assessment Notes Treatment Notes Treatment Clinical Notes Section Notes 10/09/2023 Jameson's esophagus with dysplasia (ICD-10 - K22.719) Stop aspirin for 2 days before the upper endoscopy Use the omeprazole twice a day for the 2 weeks before the endoscopy Let me know the results of the cardiac workup and if you get put on any new medications Overall, Yang appears well from a GI standpoint and is not having any worrisome symptoms. We did review the findings in detail in regard to the indefinite dysplasia on the most recent biopsies from the Jameson's esophagus back in December. I advised him that this indefinite dysplasia usually does not become a clinically significant issue progressing to higher grades of dysplasia and/or carcinoma. Nonetheless, I did advise him that it is necessary to obtain further biopsies and be sure things are stable in this regard and that the indefinite dysplasia resolves, as opposed to any of these changes becoming more worrisome with higher grades of dysplasia and/or carcinoma. I will obtain routine biopsies and also obtain WATS brushings. I did advise him that sometimes reflux induced changes can also cause the pathologist to describe areas of indefinite dysplasia. Therefore, I did advise him to increase omeprazole to twice a day for 2 weeks before the procedure to hopefully eliminate any acid related changes. Full consent was obtained for the endoscopy, including risks of bleeding and perforation. The procedure will be done with monitored anesthesia care. He was advised to stop aspirin for 2 days before the procedure as well. In regard to his current workup for possible TIAs, I did advise him to keep me posted in that regard and to let me know if he goes on any new medications such as other blood thinners or if he needs to have any other procedures done prior to his endoscopy. I told him that we can always postpone the endoscopy if need be depending upon the results of his workup and any potential further tests that may need to be scheduled for him in that regard. We did review his negative colonoscopy back in December and advised him that I don't think he needs any further screening colonoscopies. Lastly, his achalasia seems to be very stable based on his current history in which he denies any dysphagia or trouble eating in general. Yang and his were comfortable with this plan. Thank you again for allowing me to participate in Yang's care. I shall continue to keep you advised of his progress. Plan Of Treatment Treatment Notes Assessment Notes Jameson's esophagus with dysplasia Stop aspirin for 2 days before the upper endoscopy Use the omeprazole twice a day for the 2 weeks before the endoscopy Let me know the results of the cardiac workup and if you get put on any new medications Future Test Test Name Order Date UPPER GI ENDOSCOPY 10/09/2023 Next Appt Details Follow Up: prn, Reason: Provider Name:Brenden Diana , 03/17/2025 10:00:00 AM, [address] [place] [address], [address], [place], [address], Progress Notes * BRYON YANG BDOB:1949 (74 yo M)Acc No.[id number]:10/09/2023 Progress Notes Patient:?YANG SLATER Provider:?Brenden Diana MD :1950???Age:73 Y???Sex:Male Edmond e:10/09/2023 Address:[address] [place], [place] [id number] Pcp:Eric Pulido MD Subjective: * Chief Complaints: * ???Patient presents today fo r gerd * HPI: ???incontinence:? I saw Yang in followup today in regard to his underlying history of Jameson's esophagus with the finding of indefinite dysplasia , as well as his chronic gastroesophageal reflux and achalasia. He was accompanied by his . ?I last saw Yang in December, at which time he underwent a routine followup upper endoscopy for surveillance biopsies in regard to his underlying Jameson's esophagus. This did reveal his known relatively short area of Jameson's mucosa. There was no evidence of any lesions nor esophagitis noted. Biopsies were obtained and on this occasion did show indefinite dysplasia . Over the many years that he has had Jameson's esophagus with surveillance biopsies he has never had any sign of dysplasia. He also had multiple gastric polyps, some of which were biopsied and shown only to be hyperplastic and/or inflammatory in nature. They were also negative for H. pylori. ?He did have a negative followup screening colonoscopy on the same day in December as well. ?Yang feels well from a GI standpoint. He remains on his daily 20 mg omeprazole with good relief of heartburn and reflux symptoms. He denies any dysphagia ever since having had the POEM procedure for the underlying achalasia. He denies any abdominal pain, jaundice, nor weight loss. His bowel movements have been regular and without any signs of bleeding. ?He does advise me that that he is in the midst of a workup for possible TIAs causing intermittent problems with the vision involving his left eye. He describes having had a recent ultrasound of his carotid arteries and an echocardiogram. He is scheduled for a groundwater monitoring technician for sometime in October to evaluate his cardiac rhythm. He is following up with Dr. Avalos for that. He is currently using two 81 mg aspirin every day, although he has been on that regimen for years already. * ROS:?General/Constitutional:?Change in appetite?denies.?Chills?denies.?Fatigue?denies.?Ophthalmologic:?Patient denies? Negative..?ENT:?Patient denies?Negative..?Respiratory:?Patient denies?No coughing/hemoptysis..?Cardiovascular:?Patient denies? No chest pain/orthopnea..?Gastrointestinal:?Comments?See HPI for details.?Genitourinary:?Patient denies? No dysuria/hematuria..?Musculoskeletal:?Patient denies? No specific arthralgias/myalgias..?Skin:?Patient denies?No rash/pruritus..?Neurologic:?Patient denies? No headaches/seizures..?Psychiatric:?Patient denies?Negative..? * Medical History:? * Surgical History:?Laser pros douglas surgery Cystoscopies for bladder cancer Left carotid endarterectomy as above in 2013 * Hospitalization/Major Diagno stic Procedure:?No Hospitalization History. * Family History:?Father: dece ased, diagnosed with HTN (hypertension), Heart disease.?Mother: , dx in her late 60's, diagnosed with HTN (hypertension), Colon cancer, Heart disease.? * Social History:?Tobacco Use:?Tobacco Use/Smoking?Are you a: nonsmoker.?Drugs/Alcohol:?Alcohol Screen?Did you have a drink containing alcohol in the past year??No,?Points?0,?Interpretation?Negative.?Miscellaneous:?Marital status: . 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 ???Nonsmoker; occ. alcohol. * Medications:?TakingFiber Isa trum Silver Lisinopril 10 MG Tablet 1 tablet and half Orally Once a dayAtenolol 100 MG Tablet 1 tablet Orally Once a dayIsosorbide Mononitrate ER 60 MG Tablet Extended Release 24 Hour 1 tablet Orally Once a dayAspirin 81 MG Tablet Chewable 2 Orally Once a dayAtorvastatin Calcium 80 MG Tablet 1 tablet Orally Once a dayVitamin D 1000 UNIT Tablet 1 tablet Orally Once a dayOmeprazole 20 MG Capsule Delayed Release TAKE 1 CAPSULE DAILY Taking Fiber Taking Centrum Silver Taking Lisinopril 10 MG Tablet 1 tablet and half Orally Once a dayTaking Atenolol 100 MG Tablet 1 tablet Orally Once a dayTaking Isosorbide Mononitrate ER 60 MG Tablet Extended Release 24 Hour 1 tablet Orally Once a dayTaking Aspirin 81 MG Tablet Chewable 2 Orally Once a dayTaking Atorvastatin Calcium 80 MG Tablet 1 tablet Orally Once a dayTaking Vitamin D 1000 UNIT Tablet 1 tablet Orally Once a dayTaking Omeprazole 20 MG Capsule Delayed Release TAKE 1 CAPSULE DAILY DiscontinuedhydroCHLOROthiazide 12.5 MG Tablet 1 tablet in the morning Orally Once a dayMedication List reviewed and reconciled with the patientDiscontinued hydroCHLOROthiazide 12.5 MG Tablet 1 tablet in the morning Orally Once a dayMedication List reviewed and reconciled with the patient * Allergies:?Penicillinyes[All ergies Verified] Objective: * Vitals:?Wt: 337 lbs, Ht: 71 in, BMI:47.00 Index, BP: 00/00 mm Hg, Temp: 97.1. * Examination: ???General Examination: ?GENERAL APPEARANCE:?pleasant, well nourished, well developed, in no acute distress.?EYES:?sclera non-icteric.?ORAL CAVITY:?mucosa moist.?NECK/THYROID:?no cervical lymphadenopathy, neck supple.?SKIN:?nonjaundiced, no spider angiomata..?HEART:?S1, S2 normal.?LUNGS:?clear to auscultation bilaterally.?ABDOMEN:?normal bowel sounds, no guarding or rigidity, no hepatosplenomegaly, no masses palpable, soft, nontender, nondistended..?EXTREMITIES:?no edema.?NEUROLOGIC:?alert and oriented.? Assessment: * Assessment: 1.?Jameson's esophagus with dysplasia - K22.719 (Primary)? Overall, Yang appears well from a GI standpoint and is not having any worrisome symptoms. We did review the findings in detail in regard to the indefinite dysplasia on the most recent biopsies from the Jameson's esophagus back in December. I advised him that this indefinite dysplasia usually does not become a clinically significant issue progressing to higher grades of dysplasia and/or carcinoma. Nonetheless, I did advise him that it is necessary to obtain further biopsies and be sure things are stable in this regard and that the indefinite dysplasia resolves, as opposed to any of these changes becoming more worrisome with higher grades of dysplasia and/or carcinoma. I will obtain routine biopsies and also obtain WATS brushings. I did advise him that sometimes reflux induced changes can also cause the pathologist to describe areas of indefinite dysplasia. Therefore, I did advise him to increase omeprazole to twice a day for 2 weeks before the procedure to hopefully eliminate any acid related changes. Full consent was obtained for the endoscopy, including risks of bleeding and perforation. The procedure will be done with monitored anesthesia care. He was advised to stop aspirin for 2 days before the procedure as well. In regard to his current workup for possible TIAs, I did advise him to keep me posted in that regard and to let me know if he goes on any new medications such as other blood thinners or if he needs to have any other procedures done prior to his endoscopy. I told him that we can always postpone the endoscopy if need be depending upon the results of his workup and any potential further tests that may need to be scheduled for him in that regard. We did review his negative colonoscopy back in December and advised him that I don't think he needs any further screening colonoscopies. Lastly, his achalasia seems to be very stable based on his current history in which he denies any dysphagia or trouble eating in general. Yang and his were comfortable with this plan. Thank you again for allowing me to participate in Yang's care. I shall continue to keep you advised of his progress. Plan: * Treatment: Notes: Stop aspirin for 2 days before the upper endoscopy Use the omeprazole twice a day for the 2 weeks before the endoscopy Let me know the results of the cardiac workup and if you get put on any new medications?? * Procedure Codes:?3017F COLOR ECTAL CA SCREEN DOC [id number] TOBACCO [id number] BP SCR NOT PRFRM REC REASON NOS * Preventive Medicine:? ??Counseling:?Care goal follow-up plan:?Above Normal BMI Follow-up?Giving encouragement to exercise,?BMI management provided?Yes.? * Follow Up:?prn * * Sign off status: Completed true * Provider:?Brenden Diana MD Date:? 023 Generated for Mervin cordero/Luigi/Brittany on:?03/15/2025 12:40 PM EDT History and Physical Notes * HPI (History of Present Illness) Category Sub-Category Detail Notes Category Not es incontinence I saw Yang in followup today in regard to his underlying history of Jameson's esophagus with the finding of indefinite dysplasia , as well as his chronic gastroesophageal reflux and achalasia. He was accompanied by his . I last saw Yang in December, at which time he underwent a routine followup upper endoscopy for surveillance biopsies in regard to his underlying Jameson's esophagus. This did reveal his known relatively short area of Jameson's mucosa. There was no evidence of any lesions nor esophagitis noted. Biopsies were obtained and on this occasion did show indefinite dysplasia . Over the many years that he has had Jameson's esophagus with surveillance biopsies he has never had any sign of dysplasia. He also had multiple gastric polyps, some of which were biopsied and shown only to be hyperplastic and/or inflammatory in nature. They were also negative for H. pylori. He did have a negative followup screening colonoscopy on the same day in December as well. Yang feels well from a GI standpoint. He remains on his daily 20 mg omeprazole with good relief of heartburn and reflux symptoms. He denies any dysphagia ever since having had the POEM procedure for the underlying achalasia. He denies any abdominal pain, jaundice, nor weight loss. His bowel movements have been regular and without any signs of bleeding. He does advise me that that he is in the midst of a workup for possible TIAs causing intermittent problems with the vision involving his left eye. He describes having had a recent ultrasound of his carotid arteries and an echocardiogram. He is scheduled for a groundwater monitoring technician for sometime in October to evaluate his cardiac rhythm. He is following up with Dr. Avalos for that. He is currently using two 81 mg aspirin every day, although he has been on that regimen for years already. Examination Category Sub-Category Detail Notes Category Not es General Examination GENERAL APPEARANCE: pleasant , well nourished, well developed, in no acute distress EYES: sclera non-icteric NECK/THYROID: no cervical lymphade nopathy, neck supple HEART: S1, S2 normal LUNGS: clear to auscultatio n bilaterally ABDOMEN: normal bowel sounds, no guarding or rigidity, no hepatosplenomegaly, no masses palpable, soft, nontender, nondistended. NEUROLOGIC: alert and oriented SKIN: nonjaundiced, no spi madan angiomata. EXTREMITIES: no edema ORAL CAVITY: mucosa moist
== END ==
LOC: HO.CARD 12:36
PROVIDERS: PCP Internal Medicine; Visit Provider Internal Medicine Cardiovascular Disease
DX: I35.0 Nonrheumatic aortic (valve) stenosis (principal)
CPT/HCPCS: 93306; Q9957

== ENCOUNTER → 2025-03-15 12:40 | Outpatient (BNV) | payer MEDICARE, SELFPAY | PROVIDERS: PCP Internal Medicine; Visit Provider Internal Medicine Cardiovascular Disease | DX: I35.0 Nonrheumatic aortic (valve) stenosis (principal) | CPT/HCPCS: 93306 ==

== ENCOUNTER 2025-03-28 12:11 | Outpatient (AMB) | payer MEDICARE, SELFPAY ==
[2025-03-28 12:31] VITALS: BP 120/76; PULSE 64; BMI 46.1
--- NOTE | 2025-03-28 12:31 | MHC.OFFVIS ---
Vital Signs 03/28/25 12:31 Height 5 ft 11 in Weight 330 lb 11.094 oz BMI 46.1 BP 120/76 Blood Pressure Location Lt brachial Position Sitting Pulse 64 Intake Visit Reasons: 1 yr f/up-echo Intake Note: 1 year follow-up with ekg c/o fatigue and vision issues ? vascular Goring Cutter Required: No Sales Account Executive: Sales Account Executive Present Accompanied by: Spouse Allergies Penicillins [PENICILLINS] Allergy (Intermediate, Verified 06/24/24 14:19) HIVES Medication List - Last Reconciled 03/28/25 by Allen Avalos MD aspirin (Adult Aspirin Regimen) 162 mg PO DAILY atenolol 100 mg PO DAILY atorvastatin 80 mg PO DAILY isosorbide mononitrate ER 60 mg PO DAILY lisinopril 10 mg PO DAILY omeprazole 20 mg PO DAILY HPI Comments Details: Tiburcio comes for follow-up, accompanied by his . He has no obvious cardiac symptoms although he does not exercise much. He has had intermittent episodes of carrasco vision on in his left eye which comes without any obvious reason and last for 3-4 minutes. 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 This happens only in the left eye. His carotid duplex last May showed mild disease on the left and moderate to severe disease on the right. His recent echocardiogram shows mild aortic stenosis with mildly dilated ascending aorta normal LV ejection fraction. He has no episodes of palpitation irregular heartbeat. Denies any shortness of breath, orthopnea, PND. His last LDL was well optimized. [facility] Medical History Achalasia Sleep apnea Hyperlipidemia CVA (cerebral vascular accident) Enlarged prostate with lower urinary tract symptoms (LUTS) HTN (hypertension) CAD (coronary artery disease) Surgical History History of esophagogastroduodenoscopy (EGD) H/O colonoscopy History of prostate surgery History of left-sided carotid endarterectomy Hx of cardiac catheterization History of bladder surgery Family History Father Cancer Mother Cancer Social History Alcohol intake: never Patient Tobacco Use Status: Never used Tobacco Review of Systems Const Denies chills, Denies fatigue, Denies fever(s), Denies frequent falls, Denies weakness, Denies weight gain and Denies weight loss ENT Denies dizziness Card Denies chest pain, Denies leg edema, Denies lightheadedness, Denies palpitations, Denies dyspnea, Denies dyspnea on exertion, Denies orthopnea and Denies other (loss of consciousness) Resp Denies cough, Denies dyspnea and Denies dyspnea on exertion GI Denies hematochezia and Denies change in stool character Musc Denies abnormal gait, Denies muscle weakness, Denies numbness, Denies radiating pain into limb and Denies tingling Neuro Denies abnormal gait, Denies dizziness, Denies frequent falls, Denies numbness, Denies tingling and Denies weakness Endo Denies fatigue and Denies palpitations Physical Exam Vital Signs: Last Vital Signs Pulse 64 03/28/25 12:31 BP 120/76 03/28/25 12:31 BMI result Body Mass Index 46.1 Const General: cooperative, comfortable, no acute distress, alert and awake Nutritional Appearance: obese morbidly obese Orientation/consciousness: patient oriented x3 Limitations: no limitations Neck Neck: Yes trachea midline, Yes supple and Yes no JVD Carotids: bruit bilateral Resp Effort & Inspection: normal respiratory effort Auscultation: clear to auscultation bilaterally Cardio Jugular venous distension: no JVD Rate: regular rate Rhythm: regular rhythm Heart sounds: S1 normal heart sound present, S2 normal heart sound present, no click, no gallops, Murmur heart sound present systolic early, decrescendo and crescendo and no rubs Peripheral pulses: Peripheral pulses 2+ throughout GI Inspection: Yes Abdominal panniculus present and Yes obesity Auscultation: normal bowel sounds Skin General skin exam: no rashes or lesions noted Neuro General: patient oriented x3 and no focal motor deficits Extrem General: Yes no clubbing, cyanosis or edema Office Procedures EKG Details: EKG shows normal sinus rhythm with LVH with incomplete right bundle-branch block and left axis deviation, unchanged [id number], Complete Assessment & Plan Assessment & Plan (1) CAD (coronary artery disease): Code(s): I25.10 - Atherosclerotic heart disease of creek coronary artery without angina pectoris Category: Medical Plan: Diffuse vascular disease with bilateral carotid disease with moderate to severe right-sided carotid disease with mild disease on the left with symptoms of transient vision loss in his left eye. There was no other obvious etiology for the same. The no symptoms suggestive of atrial fibrillation. At this point time I would continue with aspirin therapy and consider dual antiplatelet therapy and add Plavix in addition to aspirin given his diffuse vascular disease. Continue aggressive risk factor modification. Continue aggressive blood pressure control along with aggressive lipid modification. Lipids are well optimized on current therapy with atorvastatin. Blood pressure is currently well optimized. Encouraged to regularly exercise and participate in weight loss program. (2) Aortic stenosis: Code(s): I35.0 - Nonrheumatic aortic (valve) stenosis Category: Medical Plan: Aortic stenosis which remains mild. No clinical symptoms associated with it. Continue aggressive vascular risk factor modifications above. Will follow echocardiogram on every 2 years basis. Thank you for allowing me to partake in his care Coding Level of Care Code Est Pt Level 4 (56727) Complex EM visit Add On G2211 Diagnoses CAD (coronary artery disease) I25.10 Aortic stenosis I35.0 CPT Codes EKG - CPT: 26859-[id number], Complete ([id number])
--- OUTSIDE RECORDS SUMMARY | 2025-03-28 13:53 | XMS_ITS ---
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) Active confirmed Problem Benign neoplasm of stomach (08468946) Gastric polyps (K31.7) Active confirmed Problem Esophageal reflux finding (245140326) Gastroesophageal reflux (K21.9) Active confirmed Encounters Encounter Location Date Provider Diagnosis [facility] [place] [facility] [address] [place] [id number] 01/14/2024 Brenden Diana Hobson''s esophagus without dysplasia [...] Name:Brenden Duque Adalgisa , 06/08/2025 11:10:00 AM, [address] [place] [address], [phone], Progress Notes * YANG SLATER BDOB:1949 (74 yo M)Acc No.[id number]:01/14/2024 EGD/MAC Patient:?YANG SLATER Provider:?Brenden Diana MD :1950???Age:73 Y???Sex:Male Edmond e:01/14/2024 Address:[address] [place] [address], [id number] Pcp:Joe Matias MD Subjective: * Chief Complaints: * ???1. Hobson's w/ dysplasia . * Medical History:? Objective: * Vitals:? Assessment: * Assessment: 1.?Hobson''s esophagus with out dysplasia - K22.70 (Primary)???2.?Gastric polyps - K31.7???3.?Gastroesophageal reflux - K21.9??? Plan: * Treatment: * Procedure Codes:?11610 UPPER GI ENDOSCOPY, BIOPSY * * The named appointment provid er may or may not be the originator of this progress note, and it is not deemed complete until electronically signed by the appointment provider. Sign off status: Pending * Provider:?Brenden Diana MD Date:? 024 Generated for Mervin cordero/Luigi/eTtomekasmitting on:?03/28/2025 01:53 PM EDT
== END 2025-03-28 12:53 | disposition home or self-care (01) ==
LOC: HO.HCS 12:12
PROVIDERS: PCP Internal Medicine; Visit Provider Internal Medicine Cardiovascular Disease
DX: I25.10 Atherosclerotic heart disease of native coronary artery without angina pectoris (principal); I35.0 Nonrheumatic aortic (valve) stenosis
CPT/HCPCS: 93010; 99214; G2211

== ENCOUNTER → 2025-03-28 12:11 | Outpatient (BNVA) | payer MEDICARE, SELFPAY | PROVIDERS: PCP Internal Medicine; Visit Provider Internal Medicine Cardiovascular Disease | DX: I25.10 Atherosclerotic heart disease of native coronary artery without angina pectoris (principal); I10 Essential (primary) hypertension; I35.0 Nonrheumatic aortic (valve) stenosis; I45.10 Unspecified right bundle-branch block; I77.810 Thoracic aortic ectasia | CPT/HCPCS: 93005; 99212 ==

== ENCOUNTER 2025-06-08 09:08 | Day surgery (SDC) | payer MEDICARE, SELFPAY ==
--- OUTSIDE RECORDS SUMMARY | 2024-01-14 04:30 | XMS_ITS ---
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) Active confirmed Problem Benign neoplasm of stomach (58280788) Gastric polyps (K31.7) Active confirmed Problem Esophageal reflux finding (955668261) Gastroesophageal reflux (K21.9) Active confirmed Encounters Encounter Location Date Provider Diagnosis [facility] [place] [address] [place] [phone] 01/14/2024 Brenden Diana Hobson''s esophagus without dysplasia K22.70 ; Gastric polyps K31.7 and Gastroesophageal reflux K21.9 Assessments Encounter Date Diagnosis (ICD Code) Assessment Notes Treatment Notes Treatment Clinical Notes Section Notes 01/14/2024 Hobson''s esophagus without dysplasia (ICD-10 - K22.70) 01/14/2024 Gastric polyps (ICD-10 - K31.7) 01/14/2024 Gastroesophageal reflux (ICD-10 - K21.9) Plan Of Treatment Next Appt Details Provider Name:Brenden Duque Adalgisa , 06/08/2025 11:10:00 AM, [address] [place] [address], [phone], Progress Notes * YANG SLATER BDOB:1949 (75 yo M)Acc No.[id number]:01/14/2024 EGD/MAC Patient: YANG YING Provider: Magnus Diana MD :1950 A ge:73 Y S ex:Male Date:01/14/2024 Address:[address] [place], [place] [id number] Pcp:Joe Matias MD Subjective: * Chief Complaints: * 1 . Hobson's w/ dysplasia. * Medical History: Objective: * Vitals: Assessment: * Assessment: 1. B arrett''s esophagus without dysplasia - K22.70 (Primary) 2 . G astric polyps - K31.7 3 . G astroesophageal reflux - K21.9 Plan: * Treatment: * Procedure Codes: 4 3239 UPPER GI ENDOSCOPY, BIOPSY * * The named appointment provid er may or may not be the originator of this progress note, and it is not deemed complete until electronically signed by the appointment provider. Sign off status: Pending * Provider: Magnus Diana MD Date: 0 01/14/2024 Generated for Mervin cordero/Luigi/Ravenitting on: 05/02/2025 03:43 PM EDT
--- OUTSIDE RECORDS SUMMARY | 2025-05-02 15:43 | XMS_ITS | Clinical Summary ---
Author Organization [facility] Address [address] [place] [address] Phone Care Team Providers Care Department Assistant Name Role Phone Unavailable Primary Care Provider Unavailabl e Social History Tobacco Use Types Packs/Day Years Used Date Smoking Tobacco: Never Assessed Sex and Gender Information Value Date Recorded Sex Assigned at Not on file Legal Sex Male 8:18 AM EST Gender Identity Not on file Sexual Orientation Not on file Plan of Treatment Health Maintenance Due Date Last Done Comments DTaP,Tdap,and Td Vaccines (1 - Tdap) 1968 Pneumococcal Vaccine: 50+ Ye ars (1 of 1 - PCV) 1999 Zoster Vaccines (1 of 2) 1999 RSV Immunization Adult Patie nts (1 - 1-dose 75+ series) 2024 COVID-19 Vaccine ( - 2023-2 5 season) 2024 Abdominal Aortic Aneurysm (A AA) Screen 09/30/2024 Cholesterol Screening (Lipid Panel) 09/30/2024 Depression Screening 09/30/2024 Falls Risk Assessment 09/30/2024 Hepatitis C Screening 09/30/2024 Medicare Annual Wellness Visit 09/30/2024 Social Influencers of Health Screening 09/30/2024 Influenza Vaccine (#1) 2025 HIB Vaccines Aged Out No longer eligi ble based on patient's age to complete this topic HPV Vaccines Aged Out No longer eligi ble based on patient's age to complete this topic Hepatitis A Vaccines Aged Out No long er eligible based on patient's age to complete this topic Hepatitis B Vaccines Aged Out No long er eligible based on patient's age to complete this topic IPV Vaccines Aged Out No longer eligi ble based on patient's age to complete this topic MMR Vaccines Aged Out No longer eligi ble based on patient's age to complete this topic Meningococcal ACWY Vaccine Aged Out N o longer eligible based on patient's age to complete this topic Meningococcal B Vaccine Aged Out No l onger eligible based on patient's age to complete this topic RSV Immunization Patients Un madan 20 months Aged Out No longer eligible b ased on patient's age to complete this topic Varicella Vaccines Aged Out No longer eligible based on patient's age to complete this topic Insurance BLUE [place] - [place] MEDICARE ADVANTAGE
[2025-06-06 14:55] VITALS: BMI 46.6
--- NOTE | 2025-06-07 09:06 | HO.ANESPROP2 ---
Documented by User: Ginna Nicole NP 06/07/25 09:11 HPI - Anesthesia Eval Consult details Narrative: 75yo M for Upper Endoscopy BMI 46 [place]s [facility] [place], mild Follows [facility] [place] for carotid disease (s/p L CEA >10 years ago). [facility] Active Problems Active Problems: All Active Problems Bilateral carotid artery stenosis (Acute) Aortic stenosis (Acute) Bladder cancer (Acute) Enlarged prostate with lower urinary tract symptoms (LUTS) (Acute) HTN (hypertension) (Acute) CAD (coronary artery disease) (Acute) Past Medical History Medical History Bladder cancer Achalasia Sleep apnea Hyperlipidemia CVA (cerebral vascular accident) Enlarged prostate with lower urinary tract symptoms (LUTS) HTN (hypertension) CAD (coronary artery disease) Family History Family History Father Cancer Mother Cancer Family history of problems with anesthesia: No Surgical History Surgical History History of esophagogastroduodenoscopy (EGD) H/O colonoscopy History of prostate surgery History of left-sided carotid endarterectomy Hx of cardiac catheterization History of bladder surgery History of Problems with Anesthesia: Yes (Woke up during colooscop) Social History Social History Are you a primary rn coronary care unit to a significant other at home: No Do you presently have visiting nurse or other home services: No Alcohol intake: never Patient Tobacco Use Status: Never used Tobacco Have you been hit, kicked, punched, or otherwise hurt by someone within the past year? If so, by whom?: No Are you DNR?: No Advance Directives: No Advance Directives Information Provided: Yes Poor oral hygiene: No Meds Allergies Allergy/AdvReac Type Severity Reaction Status Date / Time Penicillins (PENICILLINS) Allergy Intermediate HIVES Verified 06/08/25 09:20 Home Medications ?Medication ?Instructions ?Recorded ?Confirmed ?Last Taken ?Type atenolol 100 mg tablet 100 mg PO DAILY 06/12/21 06/06/25 06/08/25 History omeprazole 20 mg capsule,delayed 20 mg PO DAILY 06/12/21 06/06/25 01/13/24 History release aspirin 81 mg tablet,delayed 162 mg PO DAILY 06/09/23 06/06/25 06/04/25 History release (Adult Aspirin Regimen) Exam Height,Weight and Vital Signs: Height 5 ft 11 in Weight 151.5 kg Narrative Narrative: EKG 03/2025 EKG Details: EKG shows normal sinus rhythm with LVH with incomplete right bundle-branch block and left axis deviation, unchanged ECHO 02/2025 Conclusions: - 1. Technically limited study despite use of contrast agent 2. Normal LV ejection fraction of 60-65% with mild LVH 3. Mild aortic stenosis 4. Mildly dilated ascending aorta US carotid duplex BI 2023 IMPRESSION: 1. RIGHT: Moderate, hemodynamically significant stenosis of the proximal right internal carotid artery corresponding to a 50-79% stenosis by velocity criteria. 2. LEFT: Minimal, non-hemodynamically significant stenosis of the proximal left internal carotid artery corresponding to a 0-49% stenosis by velocity criteria. Assessment and Plan Assessment Anesthesia Assessment: Chart Reviewed Final Anesthetic Review Family History of Problems with Anesthesia: No History of Problems with Anesthesia: Yes (Woke up during colooscop) Documented by User: Greg Rhoades MD 06/08/25 10:53 [facility] Past Medical History Medical History Bladder cancer Achalasia Sleep apnea Hyperlipidemia CVA (cerebral vascular accident) Enlarged prostate with lower urinary tract symptoms (LUTS) HTN (hypertension) CAD (coronary artery disease) Functional capacity: independent ambulation Family History Family History Father Cancer Mother Cancer Surgical History Surgical History History of esophagogastroduodenoscopy (EGD) H/O colonoscopy History of prostate surgery History of left-sided carotid endarterectomy Hx of cardiac catheterization History of bladder surgery Social History Social History Are you a primary rn coronary care unit to a significant other at home: No Do you presently have visiting nurse or other home services: No Alcohol intake: never Patient Tobacco Use Status: Never used Tobacco Have you been hit, kicked, punched, or otherwise hurt by someone within the past year? If so, by whom?: No Are you DNR?: No Advance Directives: No Advance Directives Information Provided: Yes Poor oral hygiene: No Meds Allergies Allergy/AdvReac Type Severity Reaction Status Date / Time Penicillins (PENICILLINS) Allergy Intermediate HIVES Verified 06/08/25 09:20 Home Medications ?Medication ?Instructions ?Recorded ?Confirmed ?Last Taken ?Type atenolol 100 mg tablet 100 mg PO DAILY 06/12/21 06/06/25 06/08/25 History omeprazole 20 mg capsule,delayed 20 mg PO DAILY 06/12/21 06/06/25 01/13/24 History release aspirin 81 mg tablet,delayed 162 mg PO DAILY 06/09/23 06/06/25 06/04/25 History release (Adult Aspirin Regimen) Exam Exam Date and Time: 06/08/2025 Narrative Narrative: .EKG 03/2025 EKG Details: EKG shows normal sinus rhythm with LVH with incomplete right bundle-branch block and left axis deviation, unchanged ECHO 02/2025 Conclusions: - 1. Technically limited study despite use of contrast agent 2. Normal LV ejection fraction of 60-65% with mild LVH 3. Mild aortic stenosis 4. Mildly dilated ascending aorta US carotid duplex BI 2023 IMPRESSION: 1. RIGHT: Moderate, hemodynamically significant stenosis of the proximal right internal carotid artery corresponding to a 50-79% stenosis by velocity criteria. 2. LEFT: Minimal, non-hemodynamically significant stenosis of the proximal left internal carotid artery corresponding to a 0-49% stenosis by velocity criteria. Airway Mallampati Class: II TM Dist: >3cm Neck ROM: Full Loose/Missing/Broken Teeth: No Heart: rrr Lungs: cta Other: normal
[2025-06-08 09:18] VITALS: BMI 46.6
[2025-06-08] MEDS: Lactated Ringers 1,000 ML 100 ML IVCONT (09:18)
[2025-06-08 09:47] VITALS: BP 161/60; PULSE 72; RESP 18; TEMP 36.8; O2SAT 97
[2025-06-08 11:31] VITALS: BP 109/46; PULSE 67; RESP 16; TEMP 36.1; O2SAT 94
--- NOTE | 2025-06-08 11:42 | PM.OP ---
Brief Operative Note Date of Service: 06/08/25 Pre-op diagnosis: Jameson's Post-op diagnosis: other (Jameson's, Hiatal hernia, Gastric polyps) Procedure: EGD with biopsies, WATS brushings, and Cypher study Surgeon: Brenden Diana MD Anesthesia: MAC Was an Bottle Sorter used for this Procedure?: No Estimated blood loss (mL): 2.0 Pathology: other (A. Esophagus 38-40cm) Condition: stable Disposition: PACU
[2025-06-08 11:46] VITALS: BP 113/55; PULSE 66; RESP 16; TEMP 37.3; O2SAT 98
--- NOTE | 2025-06-08 12:54 | OP_ITS ---
DATE OF SERVICE: 06/08/2025 SURGEON: Brenden Diana MD INDICATIONS: The patient presents for evaluation of chronic gastroesophageal reflux, Jameson's esophagus, and previous indefinite dysplasia. Full consent has been obtained from him for this, including risks of bleeding and perforation. PREOPERATIVE DIAGNOSIS: POSTOPERATIVE DIAGNOSIS: PROCEDURE PERFORMED: Esophagogastroduodenoscopy with biopsies, WATS brushings, and Cypher study. ESTIMATED BLOOD LOSS: COMPLICATIONS: ANESTHESIA: Medication used, monitored anesthesia care. ASSISTANTS: SPECIMENS: PREOPERATIVE DIAGNOSES: History of Jameson;s esophagus and achalasia, gastroesophageal reflux, and previous indefinite dysplasia. POSTOPERATIVE DIAGNOSES: History of Jameson esophagus, gastroesophageal reflux, and previous indefinite dysplasia, hiatal hernia, multiple gastric polyps, history of achalasia. DESCRIPTION OF PROCEDURE: The patient was placed in the left lateral decubitus position. The Olympus video gastroscope was passed in the posterior oropharynx and upper esophagus under direct vision. The scope was passed slowly into the distal esophagus. The gastroesophageal junction appeared at 40 cm. Extending from this to 38 cm were small patches as well as short projections of Jameson's appearing mucosa. There were no overlying lesions nor esophagitis. There was a small hiatal hernia. It was somewhat difficult to continuously visualize the Jameson's mucosa due to a lot of prolapsing of the mucosa into and out of the stomach. The scope entered the stomach and was advanced to the pylorus. The duodenum was cannulated to the descending portion. The duodenum including the bulb appeared normal without mass or ulceration. The scope was withdrawn back to the stomach. The gastric antrum appeared normal with good peristalsis. The scope was retroflexed visualizing the proximal stomach carefully. Both in the retroflexed position and the forward viewing position, I was able to visualize multiple gastric polyps, many of which appeared hyperplastic and at least several, which appeared to be inflammatory in nature. None of these were biopsied as they have been biopsied in the past. None of them were bleeding. The scope was withdrawn back into the esophagus. I obtained multiple biopsies between 38 and 40 cm in the area of Jameson's appearing mucosa. I then obtained WATS brushings of the same area. Again, it was difficult to get a good visualization of the Jameson's appearing mucosa due to the prolapsing of the mucosa into and out of the stomach and hiatal hernia. Proximal to 38 cm, the esophageal mucosa appeared normal. The esophagus was somewhat tortuous, with some retained secretions and diminished peristalsis, consistent with his known achalasia. The scope was withdrawn from the patient. He tolerated the procedure well and was returned to the recovery area in stable condition. IMPRESSION: 1. History of Jameson esophagus, rule out dysplasia. 2. Hiatal hernia. 3. Multiple gastric polyps. 4. History of achalasia. PLAN: The results of the biopsies will be checked. If there is again no dysplasia as the biopsies from last year revealed, then I do not think he would need to have this done in 1 year, but we could probably wait 2 years. He was advised to resume his aspirin in 48 hours. He will continue his omeprazole as that is working well from a symptomatic standpoint. He has not had any further trouble swallowing in regard to the achalasia since the POEM procedure in 2016. He will see me otherwise in the interim on a p.r.n. basis. This has been discussed with his . MD DANIEL Kidd/CINDY / [id number] MTDD
== END 2025-06-08 12:35 | disposition home or self-care (01) ==
PROVIDERS: Visit Provider Internal Medicine
PROC: 0DJ08ZZ Inspection of Upper Intestinal Tract, Via Natural or Artificial Opening Endoscopic (ICD-10-PCS; CPT 43235; principal; 2025-06-08 10:20)
DX: K21.9 Gastro-esophageal reflux disease without esophagitis (principal); K22.719 Barrett's esophagus with dysplasia, unspecified; K31.7 Polyp of stomach and duodenum; K22.4 Dyskinesia of esophagus; K44.9 Diaphragmatic hernia without obstruction or gangrene; K22.0 Achalasia of cardia; I10 Essential (primary) hypertension; E78.5 Hyperlipidemia, unspecified; I65.23 Occlusion and stenosis of bilateral carotid arteries; I35.0 Nonrheumatic aortic (valve) stenosis; C67.9 Malignant neoplasm of bladder, unspecified; Z86.73 Personal history of transient ischemic attack (TIA), and cerebral infarction without residual deficits; G47.30 Sleep apnea, unspecified; Z99.89 Dependence on other enabling machines and devices; Z79.82 Long term (current) use of aspirin; Z79.02 Long term (current) use of antithrombotics/antiplatelets; Z79.899 Other long term (current) drug therapy
CPT/HCPCS: 43239; 88305; 88313; J2003; J2704; J3010

== ENCOUNTER 2025-06-27 11:15 | Outpatient (REF) | payer MEDICARE, SELFPAY ==
--- OUTSIDE RECORDS SUMMARY | 2024-01-14 04:30 | XMS_ITS ---
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) Active confirmed Problem Benign neoplasm of stomach (32742982) Gastric polyps (K31.7) Active confirmed Problem Esophageal reflux finding (588828979) Gastroesophageal reflux (K21.9) Active confirmed Encounters Encounter Location Date Provider Diagnosis [facility] [place] [address] [place], [place] [phone] 01/14/2024 Brenden Diana Hobson''s esophagus without dysplasia K22.70 ; Gastric polyps K31.7 and Gastroesophageal reflux K21.9 Assessments Encounter Date Diagnosis (ICD Code) Assessment Notes Treatment Notes Treatment Clinical Notes Section Notes 01/14/2024 Hobson''s esophagus without dysplasia (ICD-10 - K22.70) 01/14/2024 Gastric polyps (ICD-10 - K31.7) 01/14/2024 Gastroesophageal reflux (ICD-10 - K21.9) Plan Of Treatment No Information Progress Notes * YANG SLATER BDOB:1949 (75 yo M)Acc No.[id number]:01/14/2024 EGD/MAC Patient: Fabian YANG NELSON Provider: Magnus Diana MD :1950 A ge:73 Y S ex:Male Date:01/14/2024 Address:[address] [place] [address], [id number] Pcp:Joe Matias MD Subjective: * Chief Complaints: [...] 0 01/14/2024 Generated for Mervin cordero/Luigi/Ravenitting on: 0 06/27/2025 01:57 PM EDT
--- OUTSIDE RECORDS SUMMARY | 2025-06-08 06:20 | XMS_ITS ---
Author Organization [facility] Address [address] [place] [phone] Care Team Providers Care Strap Buckler Machine Name Role Phone Florencio WALLACE, Joe Primary Care Provider UnavailBrenden Gonzalez [phone] REASON FOR VISIT hobson's w/ dysplasia, gerd, achalasia Encounters Encounter Location Date Provider [place] [facility] [place] [address] [place] [phone] 06/08/2025 Brenden Diana Plan Of Treatment No Information Progress Notes * YANG SLATER BDOB:1949 (75 yo M)Acc No.[id number]:06/08/2025 EGD/MAC Patient: YANG YING Nila Provider: Magnus Diana MD :1950 A ge:75 Y S ex:Male Date:06/08/2025 Address:[address] [place] [address] [facility] Pcp:Joe Matias MD Subjective: * Chief Complaints: * 1 . Hobson's w/ dysplasia, gerd, achalasia. * Medical History: Objective: * Vitals: Assessment: Plan: * Treatment: * * The named appointment provid er may or may not be the originator of this progress note, and it is not deemed complete until electronically signed by the appointment provider. Sign off status: Pending * Provider: Magnus Diana MD Date: 06/08/2025 Generated for Joselini ng/Fapatrica/eTransmitting on: 0 06/27/2025 01:58 PM EDT
--- NOTE | ~2025-06-27 | US_ITS ---
EXAMINATION: US EXTRACRANIAL CAROTID DUPLEX, BILATERAL CLINICAL INFORMATION: Follow-up carotid stenosis COMPARISON: Ultrasound May 25, 2024 and CTA November 18, 2023 TECHNIQUE: Real-time ultrasound and Doppler techniques (integrating B-mode 2-D vascular images, Doppler spectral analysis and color-flow Doppler imaging) were utilized to interrogate the extracranial carotid arteries, the vertebral arteries and proximal subclavian arteries bilaterally. The degree of stenosis is determined by criteria similar to NASCET. FINDINGS: Right Side: 1. There is moderate atherosclerotic plaque seen in the bifurcation and proximal ICA. 2. The common carotid artery PSV proximally is 102 cm/s and distally 99 cm/s. 3. The proximal internal carotid artery velocities are 114 cm/s systolic and 34 cm/s diastolic. 4. The proximal external carotid artery PSV is 102 cm/s. 5. The vertebral artery shows antegrade flow. 6. The subclavian artery waveforms are triphasic. ICA/CCA ratio = 1.1 Left Side: 1. There is no atherosclerotic plaque seen in the bifurcation/proximal ICA region. 2. The common carotid artery PSV proximally is 127 cm/s and distally 117 cm/s. 3. The proximal internal carotid artery velocities are 60 cm/s systolic and 23 cm/s diastolic. 4. The proximal external carotid artery PSV is 132 cm/s. 5. The vertebral artery shows antegrade flow. 6. The subclavian artery waveforms are triphasic. ICA/CCA ratio measured 0.47 US/US carotid duplex BI IMPRESSION: 1. RIGHT: No hemodynamically significant stenosis. There is moderate plaque with narrowing measuring between 0-49%. On the previous study, peak velocity within the mid ICA measuring 145 m/s. On the current study, the peak velocity was within the proximal ICA measuring 114 m/s 2. LEFT: No hemodynamically significant stenosis. Electronically signed by: Seth Enriquez MD 06/27/2025 12:57 PM EDT
--- OUTSIDE RECORDS SUMMARY | 2025-06-27 13:58 | XMS_ITS | Patient Health Record ---
Author Organization [facility] Address [address] [place] [address] Care Team Providers Care Platform Attendant Name Role Phone Joe Matias MD Primary Care Provider Brenden Cuellar [phone] Allergies Allergen (clinical drug ingredient) Drug/Non Drug Allergy documented on EMR Reaction Allergy Type Onset Date Status Penicillin Unknown Drug Allergy Active Results Component Value Reference Range Notes Pathology (Not yet reviewed by provider) Interpretation: Performing Lab:[facility], [address] [place] [phone] Notes/Report: Reason For Referral No Information Medications Medication SIG (Take, Route, Frequency, Duration) Notes Start Date End Date Status Fiber Active MiraLax 17 GM/SCOOP 1 scoop mixed with 8 ounces of fluid Orally Once a day Active Omeprazole 20 MG TAKE 1 CAPSULE DAILY for 90 Active Lisinopril 10 MG 1 tablet and half Or ally Once a day Active Centrum Silver Activ e Isosorbide Mononitrate ER 60 MG 1 tablet Orally Once a day Active Atenolol 100 MG 1 tablet Orally Once a day Active Atorvastatin Calcium 80 MG 1 tablet Oral ly Once a day Active Aspirin 81 MG 2 Orally Once a day Active Immunizations Vaccine Route Administration Date Status Comme nts Influenza Unknown 07/20/2019 Administered Influenza Unknown 06/20/2021 Administered Social History Alcohol Screen Question Answer Notes Did you have a drink containing alcohol in the p ast year? No Points 0 Interpretation Negative Section Notes: Nonsmoker; occ. alcohol Nonsmoker; occ. alcohol Nonsmoker; occ. alcohol Nonsmoker; occ. alcohol Nonsmoker; occ. alcohol Nonsmoker; occ. alcohol Nonsmoker; occ. alcohol Nonsmoker; occ. alcohol Nonsmoker; occ. alcohol Nonsmoker; occ. 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 (K22.70) Active confirmed Problem Benign neoplasm of stomach (70824186) Polyp of stomach and duodenum (K31.7) Active confirmed Problem Diverticular disease of colon (575771754) Diverticulosis of large intestine without perforation or abscess without bleeding (K57.30) Active confirmed Problem Screening for malignant neoplasm of rectum (724300812) Encounter for screening for malignant neoplasm of rectum (Z12.12) Active confirmed Problem 400214179 Gastroesophageal reflux disease, esophagitis presence not specified (K21.9) Active confirmed Problem 822749095 Family history o f colon cancer (Z80.0) Active confirmed Problem Benign neoplasm of stomach (20883579) Gastric polyps (K31.7) Active confirmed Problem 6758178093103865 Jameson's esoph shavonne with dysplasia (K22.719) Active confirmed Problem 11199809 Achalasia (K22.0) Active confirmed Problem 71270599 Pharyngoesophage al dysphagia (R13.14) Active confirmed Problem 24988540 Esophageal motil ity disorder (K22.4) Active confirmed Problem Jameson esophagus (874697904) 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) Active confirmed Problem Esophageal reflux finding (522934911) Gastroesophageal reflux (K21.9) Active confirmed Problem Jameson's esophagus (819386270) Jameson''s esophagus without dysplasia (K22.70) Active confirmed Vital Signs Blood pressure diastolic 77 mm Hg 03/17/2025 Height 71 in 03/17/2025 Blood pressure systolic 111 mm Hg 03/17/2025 Weight 334 lbs 03/17/2025 BMI 46.58 kg/m2 03/17/2025 Procedures Procedure Date Ordered Date Performed Result Body Sit e UPPER GI ENDOSCOPY 03/17/2025 N/A Encounters Encounter Location Date Provider Diagnosis [facility] [place] [address] [place], [place] [id number] 06/08/2025 Brenden Diana [facility] [address] [place] [address] 03/17/2025 Brenden Diana Gastroesophageal ref lux disease, esophagitis presence not specified K21.9 ; Jameson's esophagus with dysplasia K22.719 and Achalasia K22.0 Assessments Encounter Date Diagnosis (ICD Code) Assessment Notes Treatment Notes Treatment Clinical Notes Section Notes 03/17/2025 Gastroesophageal reflux disease, esophagitis presence not specified (ICD-10 - K21.9) Overall, Yang appears well. He is not having any new or worrisome GI complaints. I did recommend a follow-up upper endoscopy for further surveillance of the Jameson's esophagus given the previous history of indefinite dysplasia in 2022 and the negative endoscopy 1 year later in December 2023. Given the Jameson's esophagus and the underlying achalasia I think would be important to keep a close eye on the Jameson's mucosa. Full consent has been taken for this, including risks of bleeding and perforation. He was advised to continue his daily omeprazole. He will have WATS brushings and the Cypher study of the Jameson's tissue at the time of the endoscopy again. The procedure will be done with monitored anesthesia care. He was given the below instructions regarding adjustment of his medication for the procedure. In regard to the constipation I did advise him he could use MiraLAX daily or every other day for symptomatic relief. He is not having any other worrisome symptoms to suggest the need for colonoscopy. Given his negative colonoscopy in 2022 he will not need any further screening colonoscopies as long as things remain stable. Yang and his were comfortable with this plan. Thank you again for allowing me to participate in Yang's care. I shall continue to keep you advised of his progress. 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 He is not having any new or worrisome GI complaints. I did recommend a follow-up upper endoscopy for further surveillance of the Jameson's esophagus given the previous history of indefinite dysplasia in 2022 and the negative endoscopy 1 year later in December 2023. Given the Jameson's esophagus and the underlying achalasia I think would be important to keep a close eye on the Jameson's mucosa. Full consent has been taken for this, including risks of bleeding and perforation. He was advised to continue his daily omeprazole. He will have WATS brushings and the Cypher study of the Jameson's tissue at the time of the endoscopy again. The procedure will be done with monitored anesthesia care. He was given the below instructions regarding adjustment of his medication for the procedure. In regard to the constipation I did advise him he could use MiraLAX daily or every other day for symptomatic relief. He is not having any other worrisome symptoms to suggest the need for colonoscopy. Given his negative colonoscopy in 2022 he will not need any further screening colonoscopies as long as things remain stable. Yang and his were comfortable with this plan. Thank you again for allowing me to participate in Jermains jyoti. I shall continue to keep you advised of his progress. 03/17/2025 Achalasia (ICD-10 - K22.0) Overall, Yang appears well. He is not having any new or worrisome GI complaints. I did recommend a follow-up upper endoscopy for further surveillance of the Jameson's esophagus given the previous history of indefinite dysplasia in 2022 and the negative endoscopy 1 year later in December 2023. Given the Jameson's esophagus and the underlying achalasia I think would be important to keep a close eye on the Jameson's mucosa. Full consent has been taken for this, including risks of bleeding and perforation. He was advised to continue his daily omeprazole. He will have WATS brushings and the Cypher study of the Jameson's tissue at the time of the endoscopy again. The procedure will be done with monitored anesthesia care. He was given the below instructions regarding adjustment of his medication for the procedure. In regard to the constipation I did advise him he could use MiraLAX daily or every other day for symptomatic relief. He is not having any other worrisome symptoms to suggest the need for colonoscopy. Given his negative colonoscopy in 2022 he will not need any further screening colonoscopies as long as things remain stable. Yang and his were comfortable with this plan. Thank you again for allowing me to participate in Jermains jyoti. I shall continue to keep you advised of his progress. Plan Of Treatment Pending Test Test Name Order Date Esophageal Motility study 08/19/2016 UPPER GI ENDOSCOPY 03/17/2025 XR BARIUM SWALLOW-ESOPHAGUS 07/06/2014 XR BARIUM SWALLOW-ESOPHAGUS 08/19/2016 Pathology 06/08/2025 Future Test Test Name Order Date UPPER GI ENDOSCOPY 05/03/2016 COLONOSCOPY 05/03/2016 UPPER GI ENDOSCOPY 11/23/2019 UPPER GI ENDOSCOPY 11/07/2022 COLONOSCOPY 11/07/2022 UPPER GI ENDOSCOPY 10/09/2023 Insurance Providers Payer Name Payer Address Payer Phone Subscriber Number Group Number Insured Name Patient Relationship to Insured Coverage Start Date Coverage End Date [facility] [address] [place], [place] [id number] YANG SLATER Self - patient is the insured Medical (General) History Medical History History ICD Code Tubular adenomas of colon-mo st recent colonoscopy was in 07/2016--negative for any recurrent polyps Jameson's esophagus- EGD in 11/2009 and 05/2013-small HH-bx neg for dysplasia--Jameson's dx'd in 1991--upper endoscopy in July 2016 was negative for dysplasia; EGD 03/2020 with Jameson's and negative dysplasia HTN Denies RI,DM,Lung disease,renal disease BPH Bladder cancer He had an ETT that was reportedly negati ve by his report CVA in 12/2013--right leg bec daniel weak-no swallowing trouble--symptoms resolved--had a left carotid endarterectomy at that time Hyperlipidemia Sleep apnea--uses CPAP Dysphagia--he underwent an u pper endoscopy in July 2014 with the finding of a small hiatal hernia, gastric polyps, and his small area of Jameson's esophagus--there was no esophageal stricture or ring, although I did dilate the gastroesophageal junction with an 18 mm balloon--this did seemingly give him some good improvement in regard to his dysphagia Achalasia diagnosed in the F 2015--he underwent a POEM procedure at [facility] with Dr. Wilkerson and Dr. Cruz in November of 2016 with excellent results Jameson's esophagus with in definite dysplasia --Upper endoscopy in December of 2022 revealed his known Jameson's esophagus but biopsies showed indefinite dysplasia . He was also noted to have multiple gastric polyps which were biopsied and shown only to be hyperplastic and/oor inflammatory, and were also negative for H. pylori Having possible TIAs affecti ng the vision in his left eye-as of the 09/2023 office visit he was in the midst of a workup for that Negative screening colonoscopy in 12/2022 Upper endoscopy in December revealed the known area of Jameson's esophagus but biopsies, Cypher study, and WATS brushings were all negative for any sign of dysplasia or other worrisome findings. There was no esophagitis. Surgical History Surgery Date(Month/Year) Left carotid endarterectomy as above in 2013 Cystoscopies for bladder cancer Laser prostate surgery
--- OUTSIDE RECORDS SUMMARY | 2025-06-27 13:58 | XMS_ITS | Encounter Summary ---
Author Organization [facility] Address [address] [place] [address] Care Team Providers Care Plaster Mechanic Name Role Phone Unavailable Primary Care Provider Unavailabl e Encounter Details Date Type Department Care Team (Late st Contact Info) Description 09/30/2024 Lab Requisition [facility] [address] [place] [address] Donald Patel MD [address] [facility] [address] [place] [phone] Carcinoma in situ of bladder Social History Tobacco Use Types Packs/Day Years Used Date Smoking Tobacco: Never Assessed Sex and Gender Information Value Date Recorded Sex Assigned at Not on file Legal Sex Male 8:18 AM EST Gender Identity Not on file Sexual Orientation Not on file documented as of this encounter Plan of Treatment Not on file documented as of this encounter Procedures Procedure Name Priority Date/Time Associated Diagnosis Comments AP OUTSIDE CONSULT Routine 09/23/2024 12 :00 AM EST Carcinoma in situ of bladder documented in this encounter Results * Anatomic pathology outside consult (09/23/2024 12:00 AM EST) Final Diagnosis Urine, Voided: Negative for high grade urothelial carcinoma. Results of Uro[employer] fluorescence in situ hybridization (FISH) testing: CEP3: Normal CEP7: Normal CEP17: Normal LSI 9p21: Normal Interpretation: Normal profile Controls stained appropriately. Note: The results are intended as a screening device and should be interpreted in association with other clinical and pathological findings. 10/08/2024 6:19 PM EST [facility] Clinical Information [id number] Recd 1 TP cyto 1 tp FISH 10/08/2024 6:19 PM EST [facility] Gross Description A. Urine, Voided, : [id number] RECD 1 TP CYTO 1 TP FISH 10/08/2024 6:19 PM EST [facility] Disclaimer Unless otherwise specified, all tissue is 10% NB formalin fixed and paraffin embedded. Technical pathology services provided by [facility] at [address] [place] [address] [address], [place] [address] (CLIA #[id number]/Halle Marquez MD, Preschool Principal) 10/08/2024 6:19 PM [facility] Tissue Urine specimen from urethra / Unknown 09/23/2024 09/30/2024 8:24 AM EST us Donald Patel MD LAB PATHOLOGY ORDERABLES Final Result [facility] [address] [place] [address], documented in this encounter Visit Diagnoses Diagnosis Carcinoma in situ of bladder documented in this encounter
--- OUTSIDE RECORDS SUMMARY | 2025-06-27 13:58 | XMS_ITS | Clinical Summary ---
Author Organization [facility] [address] [facility] Address [address] [place] [address] Phone Care Team Providers Care Winch Derrick Operator Name Role Phone Unavailable Primary Care Provider [...] nts (1 - 1-dose 75+ series) 2024 Cholesterol Screening (Lipid Panel) 09/30/2024 Falls Risk Assessment 09/30/2024 Hepatitis C Screening 09/30/2024 Medicare Annual Wellness Visit 09/30/2024 Social Influencers of Health Screening 09/30/2024 Depression Screening 10/20/2024 COVID-19 Vaccine ( - 2023-2 5 season) 2025 Influenza Vaccine (#1) 2025 HIB Vaccines Aged [...]
== END 2025-06-27 11:16 | disposition home or self-care (01) ==
LOC: HO.US 11:15
PROVIDERS: Visit Provider Surgery Vascular Surgery
DX: I65.23 Occlusion and stenosis of bilateral carotid arteries (principal)
CPT/HCPCS: 93880

== ENCOUNTER → 2025-06-27 11:18 | Outpatient (BNV) | payer MEDICARE, SELFPAY | PROVIDERS: Visit Provider Radiology Diagnostic Radiology | DX: I65.23 Occlusion and stenosis of bilateral carotid arteries (principal) | CPT/HCPCS: 93880 ==

== ENCOUNTER 2025-08-09 13:41 | Outpatient (AMB) | payer MEDICARE, SELFPAY ==
--- NOTE | 2025-08-09 13:49 | MHC.OFFVIS ---
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 Timber Trimmer Required: No Accompanied by: Spouse Allergies Penicillins (PENICILLINS) Allergy (Intermediate, Verified 08/09/25 13:55) HIVES HPI HPI follow up Carotid US 06/27/25: Details: The patient is a 75-year-old male presenting for follow-up evaluation regarding carotid disease. The patient underwent a left carotid endarterectomy approximately 10 to 11 years ago at [facility], performed by Dr. Moreno. The patient reports intermittent visual disturbances in the right eye, described as blank spots derrick to looking at a blank movie screen. These episodes are random and resolve spontaneously, but they are concerning due to the sudden loss of vision. He had been referred by Dr. Laird regarding this. The recent carotid ultrasound showed normal results with no significant plaque buildup on either side, indicating successful prior surgical interventions. The patient is on a high dose statin and aspirin. Now presents for routine follow-up with ultrasound testing. [facility] Medical History Bladder cancer Achalasia Sleep apnea Hyperlipidemia CVA (cerebral vascular accident) Enlarged prostate with lower urinary tract symptoms (LUTS) HTN (hypertension) CAD (coronary artery disease) Surgical History History of esophagogastroduodenoscopy (EGD) H/O colonoscopy History of prostate surgery History of left-sided carotid endarterectomy Hx of cardiac catheterization History of bladder surgery Family History Father Cancer Mother Cancer Social History Are you a primary career coach to a significant other at home: No Do you presently have visiting nurse or other home services: No Alcohol intake: never Patient Tobacco Use Status: Never used Tobacco Review of Systems Const All systems reviewed & are unremarkable except as noted in HPI and below Reports no additional complaints ENT Reports Normal hearing present Card Denies chest pain, Denies chest pain at rest, Denies chest pain with activity and Denies pedal edema Resp Denies cough GI Denies abdominal pain Musc Denies abnormal gait, Denies muscle cramps and Denies radiating pain into limb Skin/Breast Denies skin ulcer and Denies wounds Neuro Reports Normal hearing present and Denies abnormal gait Psych Reports no additional complaints Physical Exam Const General: cooperative, healthy appearing and comfortable Orientation/consciousness: oriented to person, oriented to place and oriented to time HEENT Head: Yes normal to inspection Neck Neck: Yes normal visual inspection Carotids: no bruits Chest Chest palpation & inspection: normal inspection of the chest Resp Effort & Inspection: normal respiratory effort and able to speak in complete sentences Auscultation: clear to auscultation bilaterally, no crackles, no rales, no rhonchi and no wheezes Cardio Rate: regular rate Rhythm: regular rhythm Heart sounds: S1 normal heart sound present and S2 normal heart sound present Bruits: no carotid bruits Peripheral pulses: Peripheral pulses 2+ throughout GI Inspection: Yes normal to inspection Skin Wounds: no wounds Hair: normal Neuro General: oriented to person, oriented to place and oriented to time Cranial nerves: Yes CN's II-XII intact bilaterally and Yes Normal hearing present Cognition (Neuro): normal cognition Motor exam (neuro): 5/5 motor strength present throughout Extrem Other: venous exam: No significant superficial varicosities or spider telangiectasias, minimal edema General: No clubbing, No cyanosis and No edema Psych Appearance: grossly normal Mental Status: mental status grossly normal Speech and movement: Normal speech and movement present Results Reviewed Results Reviewed: Carotid testing dated 06/27/2025 demonstrates bilateral 0-49% stenosis. Written report and images were reviewed. Assessment & Plan Assessment & Plan (1) Bilateral carotid artery stenosis: Comment: 2015 - left carotid endarterectomy by Dr. Moreno at [facility] Code(s): I65.23 - Occlusion and stenosis of bilateral carotid arteries Category: Medical Plan: In short patient has asymptomatic carotid disease. We have reviewed signs and symptoms of a stroke. We also discussed risk factor modification inclusive a healthy diet low in cholesterol. The patient will follow up with us with surveillance ultrasound of the carotids 1 year. Should there be any changes or signs or symptoms of a stroke we will be happy to see them back sooner. Thank you for allowing us to participate in this patient's care. If there are any questions or concerns please do not hesitate to contact us. Orders: Orders US carotid duplex BI 1 Year I65.23 - Occlusion and stenosis of bilateral carotid arteries Coding Level of Care Code Est Pt Level 4 (45076) Diagnoses Bilateral carotid artery stenosis I65.23
== END 2025-08-09 14:42 | disposition home or self-care (01) ==
LOC: HO.HVS 13:42
PROVIDERS: Visit Provider Surgery Vascular Surgery
DX: I65.23 Occlusion and stenosis of bilateral carotid arteries (principal)
CPT/HCPCS: 99214

== ENCOUNTER → 2025-08-09 13:41 | Outpatient (BNVA) | payer MEDICARE, SELFPAY | PROVIDERS: Visit Provider Surgery Vascular Surgery | DX: I65.23 Occlusion and stenosis of bilateral carotid arteries (principal) | CPT/HCPCS: 99212 ==